=== PATIENT | male | born 1965 | race African-American/Black ===

== ENCOUNTER → 2019-12-23 | Outpatient (CLI) | payer MEDICAID ==
[2019-12-23 18:12] LABS: BASOPHILS % (AUTO) 0.4 %; EOSINOPHILS # (AUTO) 0.2 10^3/uL (0.0-0.7); EOSINOPHILS % (AUTO) 1.5 %; HGB - HEMOGLOBIN 12.5 g/dL (14.0-18.0); LYMPHOCYTES # (AUTO) 1.8 10^3/uL (1.5-3.5); LYMPHOCYTES % (AUTO) 18.7 %; MEAN CORPUSCULAR HEMOGLOBIN 27.7 pg (27.0-31.0); MEAN CORPUSCULAR HGB CONC 31.3 g/dL (32.0-36.0); MEAN CORPUSCULAR VOLUME 88.7 fL (80.0-94.0); MEAN PLATELET VOLUME 9.1 fL (7.4-11.4); MONOCYTES # (AUTO) 0.6 10^3/uL (0.0-1.0); MONOCYTES % (AUTO) 6.3 %; NEUTROPHILS # (AUTO) 7.1 10^3/uL (1.5-6.6); NEUTROPHILS % (AUTO) 72.7 %; PLT - PLATELET COUNT 292 10^3/uL (130-450); RED BLOOD COUNT 4.51 10^6/uL (4.70-6.10); RED CELL DISTRIBUTION WIDTH 15.3 % (12.0-15.0); WHITE BLOOD COUNT 9.7 x10^3/uL (4.8-10.8)
[2019-12-23 18:45] LABS: ALBUMIN 4.1 g/dL (3.2-5.5); ALKALINE PHOSPHATASE 76 IU/L (42-121); ALT ALANINE AMINOTRANSFERASE 12 IU/L (10-60); AST ASPARTATE AMINOTRANSFERASE 19 IU/L (10-42); BILIRUBIN,TOTAL 0.3 mg/dL (0.2-1.0); BUN - BLOOD UREA NITROGEN 12 mg/dL (6-20); CALCIUM 9.1 mg/dL (8.5-10.3); CARBON DIOXIDE - CO2 26 mmol/L (21-32); CHLORIDE 104 mmol/L (101-111); CHOL/HDL RATIO 3.8 (<5.0); CHOLESTEROL 204 mg/dL; CREATININE 0.9 mg/dL (0.6-1.2); GLUCOSE 93 mg/dL (70-100); HDL CHOLESTEROL 53 mg/dL; LDL CHOLESTEROL,CALCULATED 138 mg/dL; LDL/HDL RATIO 2.6 (<3.6); SODIUM 136 mmol/L (135-145); TOTAL PROTEIN 8.2 g/dL (6.7-8.2); VLDL CHOLESTEROL 13 mg/dL
== END ==
LOC: LAB.WCP 13:20
PROVIDERS: ATTEND Physician Assistant
DX: I10 Essential (primary) hypertension (principal); Z79.899 Other long term (current) drug therapy; F10.20 Alcohol dependence, uncomplicated
CPT/HCPCS: 36415; 80053; 80061; 80320; 83721; 85025

== ENCOUNTER 2020-07-25 14:25 | Emergency (ER) | payer MEDICAID ==
--- OUTSIDE RECORDS SUMMARY | 2020-07-25 14:51 | EXTERNAL MEDICAL SUMMARY RPT | Continuity of Care Document ---
:1965 Demographics Phone Unavailable Preferred Language Unknown Marital Status Unknown Yarsani Affiliation Unknown Race Unknown Ethnic Group Unknown Author Organization [facility] Address [address] [place] [address] Phone Allergies Encounters Medications Problems Results
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
[2020-07-25] MEDS ORDERED: ACETAMINOPHEN 325 MG TABLET PO STA (16:25)
[2020-07-25] MEDS ORDERED: IBUPROFEN 600 MG TABLET PO STA (16:25)
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
[2020-07-25 17:08] VITALS: BP 138/88
== END 2020-07-25 17:06 | disposition home or self-care (01) ==
LOC: ED 14:25
DX: S06.0X1A Concussion with loss of consciousness of 30 minutes or less, initial encounter (principal); S16.1XXA Strain of muscle, fascia and tendon at neck level, initial encounter; V89.2XXA Person injured in unspecified motor-vehicle accident, traffic, initial encounter
CPT/HCPCS: 70450; 72125; 99282; 99284; A9270

== ENCOUNTER 2020-11-08 23:17 | Outpatient (CLI) | payer MEDICAID | END 2020-11-08 23:18 | disposition critical access hospital (66) | LOC: EMS 23:17 | DX: R41.82 Altered mental status, unspecified (principal); S09.90XA Unspecified injury of head, initial encounter; R26.9 Unspecified abnormalities of gait and mobility; X58.XXXA Exposure to other specified factors, initial encounter; Y92.414 Local residential or business street as the place of occurrence of the external cause | CPT/HCPCS: A0425; A0427; A0999 ==

== ENCOUNTER 2020-11-08 23:35 | Inpatient (IN) | payer MEDICAID ==
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
[2020-11-09 00:08] LABS: BASOPHILS % (AUTO) 0.2 %; HCT - HEMATOCRIT 38.1 % (42.0-52.0); HGB - HEMOGLOBIN 12.9 g/dL (14.0-18.0); LYMPHOCYTES # (AUTO) 0.5 10^3/uL (1.5-3.5); LYMPHOCYTES % (AUTO) 3.7 %; MEAN CORPUSCULAR HEMOGLOBIN 30.4 pg (27.0-31.0); MEAN CORPUSCULAR HGB CONC 33.9 g/dL (32.0-36.0); MEAN CORPUSCULAR VOLUME 89.6 fL (80.0-94.0); MEAN PLATELET VOLUME 8.7 fL (7.4-11.4); MONOCYTES # (AUTO) 0.5 10^3/uL (0.0-1.0); NEUTROPHILS # (AUTO) 11.8 10^3/uL (1.5-6.6); NEUTROPHILS % (AUTO) 91.7 %; PLT - PLATELET COUNT 136 10^3/uL (130-450); RED BLOOD COUNT 4.25 10^6/uL (4.70-6.10); RED CELL DISTRIBUTION WIDTH 13.7 % (12.0-15.0); WHITE BLOOD COUNT 12.9 x10^3/uL (4.8-10.8)
[2020-11-09 00:14] LABS: INR 1.1 (0.8-1.2); PT - PROTHROMBIN TIME 11.9 secs (9.9-12.6)
[2020-11-09 00:21] LABS: ALBUMIN 4.4 g/dL (3.2-5.5); ALKALINE PHOSPHATASE 80 IU/L (42-121); ALT ALANINE AMINOTRANSFERASE 40 IU/L (10-60); AST ASPARTATE AMINOTRANSFERASE 65 IU/L (10-42); BILIRUBIN,TOTAL 1.2 mg/dL (0.2-1.0); BUN - BLOOD UREA NITROGEN 17 mg/dL (6-20); CALCIUM 9.9 mg/dL (8.5-10.3); CARBON DIOXIDE - CO2 22 mmol/L (21-32); CHLORIDE 95 mmol/L (101-111); CREATININE 1.4 mg/dL (0.6-1.2); ETOH - ETHANOL < 5.0 mg/dL; GFR - MDRD 64 (>89); GLUCOSE 149 mg/dL (70-100); LIPASE 33 U/L (22-51); POTASSIUM 3.5 mmol/L (3.5-5.0); SODIUM 134 mmol/L (135-145); TOTAL PROTEIN 8.9 g/dL (6.7-8.2)
[2020-11-09 00:23] LABS: PARTIAL THROMBOPLASTIN TIME 25.2 secs (24.9-33.3)
--- NOTE | 2020-11-09 00:34 | CT Report ---
PROCEDURE: HEAD WO INDICATIONS: AMS TECHNIQUE: Noncontrast 4.5 mm thick angled axial sections acquired from the foramen magnum to the vertex. For r adiation dose reduction, the following was used: automated exposure control, adjustment of mA and/or kV according to patient size. COMPARISON: 07/25/2020. FINDINGS: Image quality: Excellent. CSF spaces: Basal cisterns are patent. No extra-axial fluid collections. Ventricles are normal in size and shape. Brain: Endovascular coil is again noted in the left [place] of [place] causing significant beam hardeni ng artifact. No midline shift. No intracranial masses or hemorrhage. Smith-white matter interface is normal. Skull and face: Calvarium and visualized facial bones are intact, without suspicious lesions. Sinuses: Visualized sinuses and mastoids are clear. IMPRESSION: 1. No CT evidence of acute intracranial pathology. No significant changes from previous study. 2. Surgical coil is again seen in left in[place] of [place] causing significant beam hardening artifacts unchanged from prior study. Reviewed by: Kosta Jasmine MD on 11/09/2020 12:32 AM PDT Approved by: Kosta Jasmine MD on 11/09/2020 12:32 AM PDT Station ID: [id number]
--- NOTE | 2020-11-09 00:35 | CT Report ---
PROCEDURE: CERVICAL SPINE WO INDICATIONS: AMS, syncope, head injury, confused TECHNIQUE: Noncontrast 3 mm thick sections acquired from the skull base to the T4 level. Sagittal and coronal r eformats were then constructed. For radiation dose reduction, the following was used: automated exp osure control, adjustment of mA and/or kV according to patient size. COMPARISON: 07/25/2020. FINDINGS: Image quality: Excellent. Bones: No fractures or dislocations. Mild degenerative endplate changes are noted at C3-4, C4-5 and C5-6 levels not significantly changed from prior study. Visualized superior ribs are intact. Soft tissues: Prevertebral soft tissues are normal in thickness. No paravertebral hematomas. No ap ical pneumothoraces. IMPRESSION: 1. No acute cervical spine fracture or dislocation. 2. Mild degenerative disc disease in cervical spine unchanged from previous study. Reviewed by: Kosta Jasmine MD on 11/09/2020 12:34 AM PDT Approved by: Kosta Jasmine MD on 11/09/2020 12:34 AM PDT Station ID: [id number]
--- NOTE | 2020-11-09 00:36 | XRAY Report ---
PROCEDURE: Chest 1 View X-Ray INDICATIONS: AMS, syncope TECHNIQUE: One view of the chest was acquired. COMPARISON: None. FINDINGS: Surgical changes and devices: None. Lungs and pleura: No pleural effusions or pneumothorax. Lungs are clear. Mediastinum: Mediastinal contours appear normal. Heart size is normal. Bones and chest wall: No suspicious bony lesions. Overlying soft tissues appear unremarkable. IMPRESSION: No acute cardiopulmonary pathology. Reviewed by: Kosta Jasmine MD on 11/09/2020 12:34 AM PDT Approved by: Kosta Jasmine MD on 11/09/2020 12:34 AM PDT Station ID: [id number]
[2020-11-09 00:42] LABS: MUDS CUTOFF CONCENTRATIONS CUTOFF CONC BELOW:
[2020-11-09 00:43] LABS: BILIRUBIN,URINE NEGATIVE (NEGATIVE); GLUCOSE, URINE (UA) NEGATIVE (NEGATIVE); KETONES,URINE (UA) NEGATIVE (NEGATIVE); LEUKOCYTE ESTERASE, URINE NEGATIVE (NEGATIVE); NITRITE,URINE NEGATIVE (NEGATIVE); OCCULT BLOOD,URINE MODERATE (NEGATIVE); PROTEIN,URINE 100 mg/dL (NEGATIVE); UROBILINOGEN,URINE 1 (NORMAL) E.U./dL (NORMAL)
[2020-11-09 00:54] LABS: CLARITY,URINE CLEAR (CLEAR); WBC,URINE 0-3 /HPF (0-3)
[2020-11-09 00:55] LABS: AMPHETAMINE SCREEN,URINE NEGATIVE (NEGATIVE); BACTERIA,URINE Rare /HPF (None Seen); BARBITURATE SCREEN,UR NEGATIVE (NEGATIVE); BENZODIAZEPINES SCREEN, URINE NEGATIVE (NEGATIVE); CASTS, URINE 3-5 Hyaline Casts /LPF; COCAINE SCREEN URINE NEGATIVE (NEGATIVE); METHADONE SCREEN, URINE NEGATIVE (NEGATIVE); METHAMPHETAMINES SCREEN, URINE NEGATIVE (NEGATIVE); MUCUS,URINE Few Strands; OPIATE SCREEN, URINE NEGATIVE (NEGATIVE); OXYCODONE SCREEN, URINE NEGATIVE (NEGATIVE); PROPOXYPHENE SCREEN, URINE NEGATIVE (NEGATIVE); SQUAMOUS EPITHELIAL CELL,UR FEW Squamous (<= Few); THC CANNABINOID SCREEN, URINE NEGATIVE (NEGATIVE); TRICYCLIC ANTIDEPRESSANT,URINE NEGATIVE (NEGATIVE)
[2020-11-09 01:37] LABS: B. PARAPERTUSSIS- RESP PCR PAN NOT DETECTED; B. PERTUSSIS- RESP PCR PANEL NOT DETECTED; C. PNEUMONIAE- RESP PCR PANEL NOT DETECTED; CORONAVIRUS 229E-RESP PCR NOT DETECTED; CORONAVIRUS HKU1-RESP PCR NOT DETECTED; CORONAVIRUS NL63-RESP PCR NOT DETECTED; CORONAVIRUS OC43-RESP PCR NOT DETECTED; HUMAN METAPNEUMOVIRUS NOT DETECTED; INFLUENZA A- RESP PCR PANEL NOT DETECTED; INFLUENZA B - RESP PCR PANEL NOT DETECTED; M. PNEUMONIAE- RESP PCR PANEL NOT DETECTED; PARAINFLUENZA VIRUS 1 NOT DETECTED; PARAINFLUENZA VIRUS 2 NOT DETECTED; PARAINFLUENZA VIRUS 3 NOT DETECTED; PARAINFLUENZA VIRUS 4 NOT DETECTED; RHINOVIRUS/ENTEROVIRUS NOT DETECTED; RSV- RESP PCR PANEL NOT DETECTED; SARS-CoV-2 -RESP PCR PANEL NOT DETECTED
[2020-11-09] MEDS ORDERED: LORazepam 2 MG/ML VIAL IVP STA (02:14)
[2020-11-09] MEDS ORDERED: levETIRAcetam INJ 1,000 MG in SODIUM CHLORIDE 0.9% 100ML 100 ML IV STA (02:54)
[2020-11-09] MEDS ORDERED: KETOROLAC 30 MG/ML VIAL IVP STA (07:24)
[2020-11-09] MEDS ORDERED: SODIUM CHLORIDE 0.9% 1,000 ML IV STA (09:04)
[2020-11-09] MEDS ORDERED: FOLIC ACID INJ 1 MG, THIAMINE INJ 100 MG, MAGNESIUM SULFATE 2 GM, MULTIVITAMIN 10 ML in... IV STA ×5 (16:37)
[2020-11-09] MEDS ORDERED: THIAMINE INJ 500 MG in SODIUM CHLORIDE 0.9% 50 ML IV STA (16:39)
[2020-11-09 16:55] LABS: BASOPHILS % (AUTO) 0.4 %; EOSINOPHILS # (AUTO) 0.1 10^3/uL (0.0-0.7); EOSINOPHILS % (AUTO) 0.4 %; LYMPHOCYTES # (AUTO) 1.8 10^3/uL (1.5-3.5); LYMPHOCYTES % (AUTO) 15.5 %; MEAN CORPUSCULAR HGB CONC 33.3 g/dL (32.0-36.0); MEAN PLATELET VOLUME 9.1 fL (7.4-11.4); MONOCYTES # (AUTO) 0.8 10^3/uL (0.0-1.0); MONOCYTES % (AUTO) 7.1 %; NEUTROPHILS # (AUTO) 8.6 10^3/uL (1.5-6.6); NEUTROPHILS % (AUTO) 76.2 %; PLT - PLATELET COUNT 115 10^3/uL (130-450); RED CELL DISTRIBUTION WIDTH 13.8 % (12.0-15.0); WHITE BLOOD COUNT 11.3 x10^3/uL (4.8-10.8)
[2020-11-09 17:06] LABS: ALBUMIN 3.8 g/dL (3.2-5.5); ALBUMIN/GLOBULIN RATIO 0.9 (1.0-2.2); BILIRUBIN,TOTAL 1.3 mg/dL (0.2-1.0); CREATININE 1.1 mg/dL (0.6-1.2); MAGNESIUM 2.1 mg/dL (1.7-2.8); PHOSPHORUS 3.6 mg/dL (2.5-4.6); POTASSIUM 3.1 mmol/L (3.5-5.0)
--- NOTE | 2020-11-09 17:20 | ED Physician Documentation ---
ED Addendum - Addendum Addendum: 11/09/20 17:18 Patient is a 55-year-old male who upon further review of his clinic medical records, has been through our outpatient clinic once last year. Apparently has a longstanding history of alcoholism and would often hide alcohol from his family including bottles under his bed. Patient also had a aneurysm coiled in 2019 at a hospital [facility]. He is unsure which one. I reevaluated the patient in the emergency department and he does seem to be clearing in his m ental status slightly. He states his last drink was on Monday, the seizure was on Monday, likely alcohol withdrawal seizure. He does appear to be encephalopathic with ataxia. Do not see nystagmus or oculomotor palsies at this point. Concern for possible Warnicke's encephalopathy. Started on IV thiamine and a banana bag. He also has a mildly elevated troponin as well. Discussed the case with Dr. Gan, hospitalist who will admit the patient for continued IV thiamine, echocardiogram in the morning and further care. This document was made in part using voice recognition software. While efforts are made to proofread this document, sound alike and grammatical errors may occur. Departure - Departure Disposition: 66 [facility] DC/Xfer Clinical Impression: Wernicke encephalopathy, Elevated troponin level Alcohol withdrawal Qualifiers: Complication of substance-induced condition: uncomplicated Qualified Code(s): F10.230 - Alcohol dependence with withdrawal, uncomplicated Condition: Stable
[2020-11-09] MEDS ORDERED: ONDANSETRON 4 MG/2 ML VIAL IVP PRN (20:04)
[2020-11-09] MEDS ORDERED: MORPHINE 2 MG/ML CARPUJECT IVP PRN (20:04)
[2020-11-09] MEDS ORDERED: SODIUM CHLORIDE FLUSH 0.9% 10 ML SYRINGE IVP PRN (20:04)
[2020-11-09 20:33] LABS: BASOPHILS % (AUTO) 0.3 %; EOSINOPHILS # (AUTO) 0.1 10^3/uL (0.0-0.7); EOSINOPHILS % (AUTO) 0.8 %; HCT - HEMATOCRIT 34.5 % (42.0-52.0); HGB - HEMOGLOBIN 11.4 g/dL (14.0-18.0); LYMPHOCYTES # (AUTO) 1.6 10^3/uL (1.5-3.5); LYMPHOCYTES % (AUTO) 14.8 %; MEAN CORPUSCULAR HEMOGLOBIN 29.9 pg (27.0-31.0); MEAN CORPUSCULAR VOLUME 90.6 fL (80.0-94.0); MEAN PLATELET VOLUME 8.8 fL (7.4-11.4); MONOCYTES # (AUTO) 0.7 10^3/uL (0.0-1.0); MONOCYTES % (AUTO) 6.3 %; NEUTROPHILS # (AUTO) 8.4 10^3/uL (1.5-6.6); NEUTROPHILS % (AUTO) 77.3 %; PLT - PLATELET COUNT 108 10^3/uL (130-450); RED BLOOD COUNT 3.81 10^6/uL (4.70-6.10); RED CELL DISTRIBUTION WIDTH 13.7 % (12.0-15.0); WHITE BLOOD COUNT 10.9 x10^3/uL (4.8-10.8)
[2020-11-09 20:34] LABS: INR 1.1 (0.8-1.2); PT - PROTHROMBIN TIME 11.8 secs (9.9-12.6)
[2020-11-09 20:42] LABS: ALBUMIN 3.7 g/dL (3.2-5.5); BILIRUBIN,TOTAL 1.1 mg/dL (0.2-1.0); CALCIUM 8.8 mg/dL (8.5-10.3); CREATININE 1.1 mg/dL (0.6-1.2); TOTAL PROTEIN 7.3 g/dL (6.7-8.2)
[2020-11-09] MEDS ORDERED: HEPARIN 25000UNITS/500ML (D5W) 25,000 UNIT/500 ML BAG IV SCH (21:00)
[2020-11-09] MEDS ORDERED: HEPARIN 5,000 UNIT/ML VIAL IVP ONE (21:00)
[2020-11-09] MEDS: METOPROLOL TARTRATE 25 MG TABLET PO SCH (21:05)
[2020-11-09] MEDS: ATORVASTATIN 10 MG TABLET PO SCH (21:41)
[2020-11-09] MEDS: chlordiazePOXIDE 25 MG CAPSULE PO SCH (22:23)
[2020-11-09] MEDS: CHLORHEXIDINE GLUCONATE 15 ML UDC PO SCH (22:26)
--- NOTE | 2020-11-09 22:45 | HISTORY & PHYSICAL EXAMINATION ---
History and Physical - History and Physical Chief complaint: Altered mental status/seizure Source of history: Signout from daytime hospitalist, ER signout, patient, medical record review History of present illness: The patient is a 55-year-old alcoholic male who receives no outpatient medical care. He reports history of blacking out and having probable seizure activity in the past, but does not specify his alcohol use or related history. He has history of high blood pressure which is untreated. He presented to the ER overnight on November 08 with altered mental status, and was found with repeat seizure activity during the ER stay. Initially patient was somnolent and not much information could be obtained. Case was discussed with neurology, for details I refer to the ER notes. During the daytime clinic records were obtained and based on that, the patient is a chronic alcoholic, therefore it was felt that the seizure was secondary to alcohol withdrawal. Patient reports his last drink was on Monday night, about 48 hours prior to presentation. Ad ditional problem during the ER stay included abnormal EKG with inverted T waves and elevated troponin with upgoing trend, for which cardiology consult was requested. Patient overall did not complain of shortness of breath or chest pain and clinically/mental status lyon he was steadily improving during the ER stay. Cardiology felt that cardiac abnormality was probable demand ischemia rather than coronary blockage and no invasive evaluation or transfer was recommended. Therefore the daytime hospitalist accepted the patient to be admitted to our hospital. Subsequently, I evaluated the patient at the ER, he was with much improved mentation compared to previous, he was easily arousable and converses appropriately. He offered no complaint. He confirmed his alcohol use history. He reported having history of blackouts in the past related to alcohol use and when he would stop drinking. He did not report history of coronary artery disease. Denied chest pain or shortness of breath. Regarding vital signs, patient was tachycardic and hypertensive. On exam he was noted with a bitten tongue however he did not complain of tongue pain, bleeding, and he did not recall tongue biting or urinary incontinence. At the ER he received IV hydration, vitamin replacement, Ativan and Keppra load. Regarding ER work-up, pertinent results are listed below. Past medical history: Hypertension/Not on any outpatient medication Aneurysm coiling in 2019/no record available Chronic alcoholism History of seizure/likely withdrawal seizure Outpatient medications: None taken Allergies: No known drug allergies Family history:Patient reports multiple first-degree family members have history of alcoholism and diabetes. No family history of coronary artery disease or seizure. Social history and functional status: The patient works at [employer]. He states he does not drink when he works however after work he usually drinks every day. He has been drinking alcohol "for a long time". He does not quantify or further describe his drinking habits, he states when he drinks he "drinks a lot". He had episodes in the past when he stopped drinking for a while and passed out/had probable seizure. He smokes cigarettes. Denies drug use. He does not have a primary care physician, goes to a walk-in clinic when has medical needs. CODE STATUS: Full code Review of symptoms: 12 point review done, pertinent positives and negatives listed above at history present illness, there was no additional positive. Physical exam: Vital Signs - 24 hr 11/08/20 11/08/20 11/09/20 23:43 23:48 00:18 Temperature 37.2 C 37.2 C Heart Rate 124 H 124 H 118 H Heart Rate [ Monitoring electrodes] Respiratory 24 24 19 Rate Blood Pressure 175/111 H 175/111 H 180/112 H Blood Pressure [Right Brachial artery] O2 Saturation 99 99 97 11/09/20 11/09/20 11/09/20 08:36 09:00 10:51 Temperature Heart Rate 122 H 108 H 93 Heart Rate [ Monitoring electrodes] Respiratory 23 15 16 Rate Blood Pressure 157/93 H 156/94 H 148/87 H Blood Pressure [Right Brachial artery] O2 Saturation 100 99 11/09/20 11/09/20 22:00 22:37 Temperature 36.8 C Heart Rate Heart Rate [ 67 Monitoring electrodes] Respiratory 15 Rate Blood Pressure Blood Pressure 161/90 H [Right Brachial artery] O2 Saturation 100 Oxygen O2 Source Room air General: The patient is a well-developed black male; sleeping when I enter his room in the ER however he arouses on verbal stimuli and converses appropriately. Not in distress. HEENT: Bitten tongue, right side with some hematoma/abrasion. Injected sclerae. Respiratory: No increased work of breathing, clear to auscultation bilaterally without wheezes or crackles. CVS: S1, S2, Regular tachycardia, no murmur rub or gallop. Abdomen: Benign abdomen, bowel tones present, nontender, nondistended. Neurologic: Initial lethargic but easily arousable and answers questions appropriately, oriented; no focal lateralizing sign. Psych: Cooperative.No agitation. Lymph: No pitting pedal edema. Skin: Patient has dark skin, there was no notable pallor or rash. There was an abrasion and the wound with a superficial hematoma on the right side of the forehead. Musculoskeltal: Right forehead abrasion and hematoma. Bitten tongue. No other notable injury. Diagnostic work-up: Laboratory Results - last 24 hr 11/09/20 11/09/20 11/09/20 00:00 00:00 00:00 WBC 12.9 H RBC 4.25 L Hgb 12.9 L Hct 38.1 L MCV 89.6 MCH 30.4 MCHC 33.9 RDW 13.7 Plt Count 136 MPV 8.7 Neut # (Auto) 11.8 H Lymph # (Auto) 0.5 L Brooks # (Auto) 0.5 Eos # (Auto) 0.0 Baso # (Auto) 0.0 Absolute Nucleated RBC 0.00 Nucleated RBC % 0.0 PT 11.9 INR 1.1 APTT 25.2 Sodium 134 L Potassium 3.5 Chloride 95 L Carbon Dioxide 22 Anion Gap 17.0 H BUN 17 Creatinine 1.4 H Estimated GFR (MDRD) 64 L Glucose 149 H Calcium 9.9 Phosphorus Magnesium Total Bilirubin 1.2 H AST 65 H ALT 40 Alkaline Phosphatase 80 Total Creatine Kinase CK-MB (CK-2) Troponin I High Sens Total Protein 8.9 H Albumin 4.4 Globulin 4.5 H Albumin/Globulin Ratio 1.0 Lipase 33 TSH Urine Color Urine Clarity Urine pH Ur Specific [place] Urine Protein Urine Glucose (UA) Urine Ketones Urine Occult Blood Urine Nitrite Urine Bilirubin Urine Urobilinogen Ur Leukocyte Esterase Urine RBC Urine WBC Ur Squamous Epith Cells Urine Bacteria Urine Casts Urine Mucus Ur Microscopic Review Urine Culture Comments Nasal Adenovirus (PCR) Nasal B. parapertussis DNA (PCR) Nasal Coronavir 229E PCR Nasal Coronavir HKU1 PCR Nasal Coronavir NL63 PCR Nasal Coronavir OC43 PCR Nasal Enterovir/Rhinovir PCR Nasal Influenza B PCR Nasal Influenza A PCR Nasal Parainfluen 1 PCR Nasal Parainfluen 2 PCR Nasal Parainfluen 3 PCR Nasal Parainfluen 4 PCR Nasal RSV (PCR) Nasal B.pertussis DNA PCR Nasal C.pneumoniae (PCR) Gabe Human Metapneumo PCR Nasal M.pneumoniae (PCR) Nasal SARS-CoV-2 (PCR) Urine Opiates Screen Ur Oxycodone Screen Urine Methadone Screen Ur Propoxyphene Screen Ur Barbiturates Screen Ur Tricyclics Screen Ur Phencyclidine Scrn Ur Amphetamine Screen U Methamphetamines Scrn U Benzodiazepines Scrn Urine Cocaine Screen U Cannabinoids Screen Ethyl Alcohol < 5.0 11/09/20 11/09/20 11/09/20 00:00 00:00 00:00 WBC RBC Hgb Hct MCV MCH MCHC RDW Plt Count MPV Neut # (Auto) Lymph # (Auto) Brooks # (Auto) Eos # (Auto) Baso # (Auto) Absolute Nucleated RBC Nucleated RBC % PT INR APTT Sodium Potassium Chloride Carbon Dioxide Anion Gap BUN Creatinine Estimated GFR (MDRD) Glucose Calcium Phosphorus Magnesium Total Bilirubin AST ALT Alkaline Phosphatase Total Creatine Kinase CK-MB (CK-2) Troponin I High Sens 72.8 H* Total Protein Albumin Globulin Albumin/Globulin Ratio Lipase TSH 0.96 Urine Color YELLOW Urine Clarity CLEAR Urine pH 6.0 Ur Specific [place] 1.020 Urine Protein 100 H Urine Glucose (UA) NEGATIVE Urine Ketones NEGATIVE Urine Occult Blood MODERATE H Urine Nitrite NEGATIVE Urine Bilirubin NEGATIVE Urine Urobilinogen 1 (NORMAL) Ur Leukocyte Esterase NEGATIVE Urine RBC 6-10 H Urine WBC 0-3 Ur Squamous Epith Cells FEW Squamous Urine Bacteria Rare Urine Casts 3-5 Hyaline Casts Urine Mucus Few Strands Ur Microscopic Review INDICATED Urine Culture Comments NOT INDICATED Nasal Adenovirus (PCR) Nasal B. parapertussis DNA (PCR) Nasal Coronavir 229E PCR Nasal Coronavir HKU1 PCR Nasal Coronavir NL63 PCR Nasal Coronavir OC43 PCR Nasal Enterovir/Rhinovir PCR Nasal Influenza B PCR Nasal Influenza A PCR Nasal Parainfluen 1 PCR Nasal Parainfluen 2 PCR Nasal Parainfluen 3 PCR Nasal Parainfluen 4 PCR Nasal RSV (PCR) Nasal B.pertussis DNA PCR Nasal C.pneumoniae (PCR) Gabe Human Metapneumo PCR Nasal M.pneumoniae (PCR) Nasal SARS-CoV-2 (PCR) Urine Opiates Screen NEGATIVE Ur Oxycodone Screen NEGATIVE Urine Methadone Screen NEGATIVE Ur Propoxyphene Screen NEGATIVE Ur Barbiturates Screen NEGATIVE Ur Tricyclics Screen NEGATIVE Ur Phencyclidine Scrn NEGATIVE Ur Amphetamine Screen NEGATIVE U Methamphetamines Scrn NEGATIVE U Benzodiazepines Scrn NEGATIVE Urine Cocaine Screen NEGATIVE U Cannabinoids Screen NEGATIVE Ethyl Alcohol 11/09/20 11/09/20 11/09/20 00:10 02:12 11:11 WBC RBC Hgb Hct MCV MCH MCHC RDW Plt Count MPV Neut # (Auto) Lymph # (Auto) Brooks # (Auto) Eos # (Auto) Baso # (Auto) Absolute Nucleated RBC Nucleated RBC % PT INR APTT Sodium Potassium Chloride Carbon Dioxide Anion Gap BUN Creatinine Estimated GFR (MDRD) Glucose Calcium Phosphorus Magnesium Total Bilirubin AST ALT Alkaline Phosphatase Total Creatine Kinase CK-MB (CK-2) Troponin I High Sens 131.8 H* 250.9 H* Total Protein Albumin Globulin Albumin/Globulin Ratio Lipase TSH Urine Color Urine Clarity Urine pH Ur Specific [place] Urine Protein Urine Glucose (UA) Urine Ketones Urine Occult Blood Urine Nitrite Urine Bilirubin Urine Urobilinogen Ur Leukocyte Esterase Urine RBC Urine WBC Ur Squamous Epith Cells Urine Bacteria Urine Casts Urine Mucus Ur Microscopic Review Urine Culture Comments Nasal Adenovirus (PCR) NOT DETECTED Nasal B. parapertussis DNA (PCR) NOT DETECTED Nasal Coronavir 229E PCR NOT DETECTED Nasal Coronavir HKU1 PCR NOT DETECTED Nasal Coronavir NL63 PCR NOT DETECTED Nasal Coronavir OC43 PCR NOT DETECTED Nasal Enterovir/Rhinovir PCR NOT DETECTED Nasal Influenza B PCR NOT DETECTED Nasal Influenza A PCR NOT DETECTED Nasal Parainfluen 1 PCR NOT DETECTED Nasal Parainfluen 2 PCR NOT DETECTED Nasal Parainfluen 3 PCR NOT DETECTED Nasal Parainfluen 4 PCR NOT DETECTED Nasal RSV (PCR) NOT DETECTED Nasal B.pertussis DNA PCR NOT DETECTED Nasal C.pneumoniae (PCR) NOT DETECTED Gabe Human Metapneumo PCR NOT DETECTED Nasal M.pneumoniae (PCR) NOT DETECTED Nasal SARS-CoV-2 (PCR) NOT DETECTED Urine Opiates Screen Ur Oxycodone Screen Urine Methadone Screen Ur Propoxyphene Screen Ur Barbiturates Screen Ur Tricyclics Screen Ur Phencyclidine Scrn Ur Amphetamine Screen U Methamphetamines Scrn U Benzodiazepines Scrn Urine Cocaine Screen U Cannabinoids Screen Ethyl Alcohol EKG: Abnormal EKG with rate of 130, sinus rhythm; anterolateral changes including inverted T waves and an abnormally sloping ST segment however no ST elevation qualifying for STEMI. Imaging reviewed per electronic medical record CT head showed no acute int racranial abnormality. CT scan of the cervical spine showed degenerative disease but no acute abnormality. Chest x-ray showed no acute cardiopulmonary disease. Assessment and plan: Active issues/diagnoses Encephalopathy/alcohol withdrawal seizure with tongue biting Chronic alcoholism Acute coronary syndrome with upgoing troponin/per cardiology opinion no invasive evaluation or transfer to higher level of care indicated/Probable demand ischemia Closed head injury secondary to fall in the setting of seizure Acute kidney injury/dehydration History of hypertension/untreated Cigarette smoking Noncompliance/no primary care Hyperdynamic circulation with tachycardia and hypertension /multifactorial secondary to untreated hypertension, alcohol withdrawal, dehydration, demand ischemia Plan and orders: Admitted as inpatient to the ICU Started on Librium plus CIWA scoring and as needed Ativan coverage. Aspiration precautions/seizure precaution. Thiamine, folate, vitamin supplementation/IV hydration/banana bag. Discussed current work-up, diagnoses, prognosis with the patient and the need for abstinence, outpatient follow-up and lifestyle modification. ER physician discussed the case with neurology and no antiepileptic was recommended, initially Keppra was ordered however in light of alcohol withdrawal seizure the neurologist did not recommend further use of antiepileptic. Outpatient EEG was recommended but no transfer to higher level of care. For details I refer to the ER physician's note. Regarding acute coronary syndrome the initial EKG was significantly abnormal however cardiology felt that it was secondary to seizure/alcohol withdrawal. No transfer to higher level of care was recommended; cardiology recommendations and input are well documented in the ER physician's note. Patient will be closely monitored on telemetry, troponin will be rechecked in the morning. For now we will order repeat EKG, if ST elevation develops then overnight transfer will be rediscussed with cardiology. Cardiac ischemia will be treated conservatively with heparin drip, beta-gilbert, aspirin, statin. Echocardiogram in the morning. Further plan will depend on the clinical course. Nicotine patch. Oral care. Chlorhexidine. Abstinence from alcohol recommended, social work consult. Attestation: I certify that the patient meets inpatient criteria based on the admission diagnosis, and the above assessment, findings and plan; he is expected to be hospitalized for more than 48 hours however to discharge or transfer to other facility within less than 96 hours. Time: 65 minutes critical care time spent
[2020-11-09] MEDS: SODIUM CHLORIDE FLUSH 0.9% 10 ML SYRINGE IVP SCH (22:47)
[2020-11-10 01:31] LABS: BILIRUBIN,URINE NEGATIVE (NEGATIVE); GLUCOSE, URINE (UA) NEGATIVE (NEGATIVE); KETONES,URINE (UA) TRACE mg/dL (NEGATIVE); LEUKOCYTE ESTERASE, URINE NEGATIVE (NEGATIVE); NITRITE,URINE NEGATIVE (NEGATIVE); OCCULT BLOOD,URINE MODERATE (NEGATIVE); PROTEIN,URINE NEGATIVE (NEGATIVE); UROBILINOGEN,URINE 0.2 (NORMAL) E.U./dL (NORMAL)
[2020-11-10 01:36] LABS: CLARITY,URINE CLEAR (CLEAR)
[2020-11-10 01:41] LABS: RBC,URINE 0-5 /HPF (0-5); WBC,URINE 0-3 /HPF (0-3)
[2020-11-10 01:42] LABS: BACTERIA,URINE None Seen /HPF (None Seen); SQUAMOUS EPITHELIAL CELL,UR RARE Squamous (<= Few)
[2020-11-10 05:36] LABS: MAGNESIUM 2.1 mg/dL (1.7-2.8); PHOSPHORUS 3.7 mg/dL (2.5-4.6)
[2020-11-10] MEDS: chlordiazePOXIDE 25 MG CAPSULE PO SCH ×3 (06:22→21:52)
[2020-11-10] MEDS: PANTOPRAZOLE 40 MG TABLET PO SCH (06:22)
--- NOTE | 2020-11-10 08:25 | PROVIDER PROGRESS NOTE ---
Subjective - Prog Note Date Prog Note Date: 11/10/20 Prog Note Time: 13:56 - Subjective Pt reports feeling: Improved Subjective: awake alert and he feels "ashamed" about his drinking. States he started 6 years ago due to job and loses. Denies pain. Feels mild restlessness and anxiety but no diaphoresis or tremors. No more seizures since yesterday. Current Medications - Current Medications Current Medications: Active Medications Acetaminophen (Acetaminophen 325 Mg Tablet) 650 mg PO Q4HR PRN PRN Reason: Pain 1 to 4 Aspirin (Aspirin Ec 325 Mg Tablet) 325 mg PO DAILY [facility] Atorvastatin Calcium (Atorvastatin 10 Mg Tablet) 10 mg PO QPM [facility] Last Admin: 11/09/20 21:41 Dose: 10 mg Documented by: Chlordiazepoxide HCl (Chlordiazepoxide 25 Mg Capsule) 50 mg PO TID [facility] Last Admin: 11/10/20 06:22 Dose: 50 mg Documented by: Chlorhexidine Gluconate (Chlorhexidine Gluconate 15 Ml Udc) 15 ml PO BID [facility] Last Admin: 11/09/20 22:26 Dose: 15 ml Documented by: Enoxaparin Sodium (Enoxaparin 40 Mg/0.4 Ml Syringe) 40 mg SUBQ DAILY [facility] Multivitamins 10 ml/ Folic Acid 1 mg/ Thiamine HCl 100 mg / Magnesium Sulfate 2 gm/Sodium Chloride 1,015.2 mls @ 100 mls/hr IV DAILY [facility] Lorazepam (Lorazepam 2 Mg/Ml Vial) 2 mg IVP Q30M PRN; Protocol PRN Reason: CIWA >8 Metoprolol Tartrate (Metoprolol Tartrate 25 Mg Tablet) 25 mg PO BID [facility] Last Admin: 11/09/20 21:05 Dose: 25 mg Documented by: Morphine Sulfate (Morphine 2 Mg/Ml Carpuject) 2 mg IVP Q2HR PRN PRN Reason: Pain 8 to 10 Nicotine (Nicotine 14 Mg Patch) 1 patch TOP DAILY [facility] Ondansetron HCl (Ondansetron 4 Mg/2 Ml Vial) 4 mg IVP Q6HR PRN PRN Reason: Nausea / Vomiting Pantoprazole Sodium (Pantoprazole 40 Mg Tablet) 40 mg PO QDAC [facility] Last Admin: 11/10/20 06:22 Dose: 40 mg Documented by: Multivit/Folic Acid/Iron ( Vitamin Tablet) 1 tab PO DAILY [facility] Sodium Chloride (Sodium Chloride Flush 0.9% 10 Ml Syringe) 10 ml IVP PRN PRN PRN Reason: NEEDED PER PROVIDER ORDERS Sodium Chloride (Sodium Chloride Flush 0.9% 10 Ml Syringe) 10 ml IVP 0100,0900,1700 [facility] Last Admin: 11/09/20 22:47 Dose: 10 ml Documented by: Thiamine HCl (Thiamine 100 Mg Tablet) 100 mg PO DAILY CON Home Medications Unobtainable [HOME MEDICATIONS UNOBTAINABLE] 11/09/20 Objective - Vital Signs/Intake & Output Reviewed Vital Signs: Yes Vital Signs: Vital Signs x48h Temp Pulse Pulse Resp BP BP Pulse Ox 11/10/20 07:00 68 14 150/88 H 99 11/10/20 06:00 36.8 C 65 12 161/116 H 100 11/10/20 05:10 61 13 11/10/20 05:05 85 20 11/10/20 05:01 65 14 135/80 H 11/10/20 05:00 64 65 13 135/80 H 100 11/10/20 04:55 68 14 11/10/20 04:50 68 15 11/10/20 04:45 67 21 11/10/20 04:40 66 15 11/10/20 04:35 70 14 11/10/20 04:30 72 13 11/10/20 04:25 72 12 11/10/20 04:20 73 13 11/10/20 04:15 73 12 11/10/20 04:10 74 14 11/10/20 04:05 70 12 11/10/20 04:01 68 15 148/94 H 11/10/20 04:00 67 68 15 148/94 H 99 11/10/20 03:55 67 13 11/10/20 03:50 73 18 11/10/20 03:45 74 15 11/10/20 03:40 70 13 11/10/20 03:35 76 14 11/10/20 03:30 85 14 11/10/20 03:29 78 12 150/93 H 11/10/20 03:28 82 15 11/10/20 03:25 73 16 11/10/20 03:20 77 14 11/10/20 03:15 73 15 11/10/20 03:10 76 26 H 11/10/20 03:05 72 12 11/10/20 03:00 72 72 13 150/93 H 100 11/10/20 02:55 67 18 11/10/20 02:50 71 13 11/10/20 02:45 72 21 11/10/20 02:40 83 17 11/10/20 02:35 71 16 11/10/20 02:30 76 22 11/10/20 02:25 70 15 11/10/20 02:20 74 18 11/10/20 02:15 80 22 11/10/20 02:10 64 15 11/10/20 02:06 73 19 11/10/20 02:05 67 14 147/90 H 11/10/20 02:04 70 15 11/10/20 02:01 74 16 153/109 H 11/10/20 02:00 73 68 15 147/90 H 100 11/10/20 01:55 85 26 H 11/10/20 01:50 67 12 11/10/20 01:45 73 16 11/10/20 01:40 68 16 11/10/20 01:05 69 17 147/85 H 100 11/10/20 01:00 76 25 H 11/10/20 00:55 67 22 11/10/20 00:50 87 21 11/10/20 00:45 73 12 11/10/20 00:40 70 14 11/10/20 00:35 66 19 11/10/20 00:30 67 12 11/10/20 00:25 68 14 Intake & Output: Intake & Output 11/07/20 11/08/20 11/09/20 11/10/20 23:59 23:59 23:59 23:59 Intake Total 2420.2 439.674 Output Total 400 Balance 2420.2 39.674 - Objective General Appearance: positive: No acute distress, Alert, Other (oriented, calm black male) Eyes Bilateral: positive: PERRL ENT: positive: No signs of dehydration Neck: positive: No JVD. negative: Stiff neck Respiratory: positive: No respiratory distress. negative: Wheezes, Rales, Rhonchi Cardiovascular: positive: Regular rate & rhythm. negative: Gallop/S4, Friction rub Abdomen: positive: Non-tender, No organomegaly, Nml bowel sounds, No distention Skin: positive: Warm, Dry Extremities: positive: Full ROM, No pedal edema Neurologic/Psychiatric: positive: Oriented x3, CN's nml (2-12), Motor nml, Sens ation nml - Lab Results Fish Bones: 11/09/20 20:19 11/09/20 20:19 Other Labs: Lab Results x24hrs 11/10/20 11/10/20 11/10/20 Range/Units 05:05 05:05 05:05 WBC (4.8-10.8) x10^3/uL RBC (4.70-6.10) 10^6/uL Hgb (14.0-18.0) g/dL Hct (42.0-52.0) % MCV (80.0-94.0) fL MCH (27.0-31.0) pg MCHC (32.0-36.0) g/dL RDW (12.0-15.0) % Plt Count (130-450) 10^3/uL MPV (7.4-11.4) fL Neut # (Auto) (1.5-6.6) 10^3/uL Lymph # (Auto) (1.5-3.5) 10^3/uL Burnet # (Auto) (0.0-1.0) 10^3/uL Eos # (Auto) (0.0-0.7) 10^3/uL Baso # (Auto) (0.0-0.1) 10^3/uL Absolute Nucleated RBC x10^3/uL Nucleated RBC % /100WBC PT (9.9-12.6) secs INR (0.8-1.2) APTT (24.9-33.3) secs Sodium (135-145) mmol/L Potassium (3.5-5.0) mmol/L Chloride (101-111) mmol/L Carbon Dioxide (21-32) mmol/L Anion Gap (6-13) BUN (6-20) mg/dL Creatinine (0.6-1.2) mg/dL Estimated GFR (MDRD) (>89) Glucose (70-100) mg/dL Calcium (8.5-10.3) mg/dL Phosphorus 3.7 (2.5-4.6) mg/dL Magnesium 2.1 (1.7-2.8) mg/dL Total Bilirubin (0.2-1.0) mg/dL AST (10-42) IU/L ALT (10-60) IU/L Alkaline Phosphatase (42-121) IU/L Total Creatine Kinase 48046 H* (22-269) IU/L CK-MB (CK-2) (0.6-6.3) ng/mL Troponin I High Sens 187.5 H* (2.3-19.7) ng/L Total Protein (6.7-8.2) g/dL Albumin (3.2-5.5) g/dL Globulin (2.1-4.2) g/dL Albumin/Globulin Ratio (1.0-2.2) Lipase (22-51) U/L Urine Color Urine Clarity (CLEAR) Urine pH (5.0-7.5) PH Ur Specific Tiona (1.002-1.030) Urine Protein (NEGATIVE) mg/dL Urine Glucose (UA) (NEGATIVE) mg/dL Urine Ketones (NEGATIVE) mg/dL Urine Occult Blood (NEGATIVE) Urine Nitrite (NEGATIVE) Urine Bilirubin (NEGATIVE) Urine Urobilinogen (NORMAL) E.U./dL Ur Leukocyte Esterase (NEGATIVE) Urine RBC (0-5) /HPF Urine WBC (0-3) /HPF Ur Squamous Epith Cells (<= Few) Urine Bacteria (None Seen) /HPF Ur Microscopic Review Urine Culture Comments Nasal Screen MRSA (PCR) (NEGATIVE) 11/10/20 11/09/20 11/09/20 Range/Units 00:44 23:22 21:00 WBC (4.8-10.8) x10^3/uL RBC (4.70-6.10) 10^6/uL Hgb (14.0-18.0) g/dL Hct (42.0-52.0) % MCV (80.0-94.0) fL MCH (27.0-31.0) pg MCHC (32.0-36.0) g/dL RDW (12.0-15.0) % Plt Count (130-450) 10^3/uL MPV (7.4-11.4) fL Neut # (Auto) (1.5-6.6) 10^3/uL Lymph # (Auto) (1.5-3.5) 10^3/uL Burnet # (Auto) (0.0-1.0) 10^3/uL Eos # (Auto) (0.0-0.7) 10^3/uL Baso # (Auto) (0.0-0.1) 10^3/uL Absolute Nucleated RBC x10^3/uL Nucleated RBC % /100WBC PT (9.9-12.6) secs INR (0.8-1.2) APTT 60.9 H (24.9-33.3) secs Sodium (135-145) mmol/L Potassium (3.5-5.0) mmol/L Chloride (101-111) mmol/L Carbon Dioxide (21-32) mmol/L Anion Gap (6-13) BUN (6-20) mg/dL Creatinine (0.6-1.2) mg/dL Estimated GFR (MDRD) (>89) Glucose (70-100) mg/dL Calcium (8.5-10.3) mg/dL Phosphorus (2.5-4.6) mg/dL Magnesium (1.7-2.8) mg/dL Total Bilirubin (0.2-1.0) mg/dL AST (10-42) IU/L ALT (10-60) IU/L Alkaline Phosphatase (42-121) IU/L Total Creatine Kinase (22-269) IU/L CK-MB (CK-2) (0.6-6.3) ng/mL Troponin I High Sens (2.3-19.7) ng/L Total Protein (6.7-8.2) g/dL Albumin (3.2-5.5) g/dL Globulin (2.1-4.2) g/dL Albumin/Globulin Ratio (1.0-2.2) Lipase (22-51) U/L Urine Color YELLOW Urine Clarity CLEAR (CLEAR) Urine pH 6.0 (5.0-7.5) PH Ur Specific Tiona 1.020 (1.002-1.030) Urine Protein NEGATIVE (NEGATIVE) mg/dL Urine Glucose (UA) NEGATIVE (NEGATIVE) mg/dL Urine Ketones TRACE (NEGATIVE) mg/dL Urine Occult Blood MODERATE H (NEGATIVE) Urine Nitrite NEGATIVE (NEGATIVE) Urine Bilirubin NEGATIVE (NEGATIVE) Urine Urobilinogen 0.2 (NORMAL) (NORMAL) E.U./dL Ur Leukocyte Esterase NEGATIVE (NEGATIVE) Urine RBC 0-5 (0-5) /HPF Urine WBC 0-3 (0-3) /HPF Ur Squamous Epith Cells RARE Squamous (<= Few) Urine Bacteria None Seen (None Seen) /HPF Ur Microscopic Review INDICATED Urine Culture Comments NOT INDICATED Nasal Screen MRSA (PCR) NEGATIVE (NEGATIVE) 11/09/20 11/09/20 11/09/20 Range/Units 20:19 20:19 20:19 WBC (4.8-10.8) x10^3/uL RBC (4.70-6.10) 10^6/uL Hgb (14.0-18.0) g/dL Hct (42.0-52.0) % MCV (80.0-94.0) fL MCH (27.0-31.0) pg MCHC (32.0-36.0) g/dL RDW (12.0-15.0) % Plt Count (130-450) 10^3/uL MPV (7.4-11.4) fL Neut # (Auto) (1.5-6.6) 10^3/uL Lymph # (Auto) (1.5-3.5) 10^3/uL Burnet # (Auto) (0.0-1.0) 10^3/uL Eos # (Auto) (0.0-0.7) 10^3/uL Baso # (Auto) (0.0-0.1) 10^3/uL Absolute Nucleated RBC x10^3/uL Nucleated RBC % /100WBC PT (9.9-12.6) secs INR (0.8-1.2) APTT (24.9-33.3) secs Sodium 138 (135-145) mmol/L Potassium 3.0 L (3.5-5.0) mmol/L Chloride 102 (101-111) mmol/L Carbon Dioxide 25 (21-32) mmol/L Anion Gap 11.0 (6-13) BUN 13 (6-20) mg/dL Creatinine 1.1 (0.6-1.2) mg/dL Estimated GFR (MDRD) 84 L (>89) Glucose 111 H (70-100) mg/dL Calcium 8.8 (8.5-10.3) mg/dL Phosphorus (2.5-4.6) mg/dL Magnesium (1.7-2.8) mg/dL Total Bilirubin 1.1 H (0.2-1.0) mg/dL AST 154 H (10-42) IU/L ALT 35 (10-60) IU/L Alkaline Phosphatase 71 (42-121) IU/L Total Creatine Kinase 96930 H* (22-269) IU/L CK-MB (CK-2) 17.0 H (0.6-6.3) ng/mL Troponin I High Sens (2.3-19.7) ng/L Total Protein 7.3 (6.7-8.2) g/dL Albumin 3.7 (3.2-5.5) g/dL Globulin 3.6 (2.1-4.2) g/dL Albumin/Globulin Ratio 1.0 (1.0-2.2) Lipase (22-51) U/L Urine Color Urine Clarity (CLEAR) Urine pH (5.0-7.5) PH Ur Specific Tiona (1.002-1.030) Urine Protein (NEGATIVE) mg/dL Urine Glucose (UA) (NEGATIVE) mg/dL Urine Ketones (NEGATIVE) mg/dL Urine Occult Blood (NEGATIVE) Urine Nitrite (NEGATIVE) Urine Bilirubin (NEGATIVE) Urine Urobilinogen (NORMAL) E.U./dL Ur Leukocyte Esterase (NEGATIVE) Urine RBC (0-5) /HPF Urine WBC (0-3) /HPF Ur Squamous Epith Cells (<= Few) Urine Bacteria (None Seen) /HPF Ur Microscopic Review Urine Culture Comments Nasal Screen MRSA (PCR) (NEGATIVE) 11/09/20 11/09/20 11/09/20 Range/Units 20:19 20:19 16:47 WBC 10.9 H (4.8-10.8) x10^3/uL RBC 3.81 L (4.70-6.10) 10^6/uL Hgb 11.4 L (14.0-18.0) g/dL Hct 34.5 L (42.0-52.0) % MCV 90.6 (80.0-94.0) fL MCH 29.9 (27.0-31.0) pg MCHC 33.0 (32.0-36.0) g/dL RDW 13.7 (12.0-15.0) % Plt Count 108 L (130-450) 10^3/uL MPV 8.8 (7.4-11.4) fL Neut # (Auto) 8.4 H (1.5-6.6) 10^3/uL Lymph # (Auto) 1.6 (1.5-3.5) 10^3/uL Burnet # (Auto) 0.7 (0.0-1.0) 10^3/uL Eos # (Auto) 0.1 (0.0-0.7) 10^3/uL Baso # (Auto) 0.0 (0.0-0.1) 10^3/uL Absolute Nucleated RBC 0.00 x10^3/uL Nucleated RBC % 0.0 /100WBC PT 11.8 (9.9-12.6) secs INR 1.1 (0.8-1.2) APTT (24.9-33.3) secs Sodium 134 L (135-145) mmol/L Potassium 3.1 L (3.5-5.0) mmol/L Chloride 98 L (101-111) mmol/L Carbon Dioxide 26 (21-32) mmol/L Anion Gap 10.0 (6-13) BUN 15 (6-20) mg/dL Creatinine 1.1 (0.6-1.2) mg/dL Estimated GFR (MDRD) 84 L (>89) Glucose 97 (70-100) mg/dL Calcium 9.0 (8.5-10.3) mg/dL Phosphorus 3.6 (2.5-4.6) mg/dL Magnesium 2.1 (1.7-2.8) mg/dL Total Bilirubin 1.3 H (0.2-1.0) mg/dL AST 144 H (10-42) IU/L ALT 37 (10-60) IU/L Alkaline Phosphatase 71 (42-121) IU/L Total Creatine Kinase (22-269) IU/L CK-MB (CK-2) (0.6-6.3) ng/mL Troponin I High Sens (2.3-19.7) ng/L Total Protein 8.0 (6.7-8.2) g/dL Albumin 3.8 (3.2-5.5) g/dL Globulin 4.2 (2.1-4.2) g/dL Albumin/Globulin Ratio 0.9 L (1.0-2.2) Lipase 31 (22-51) U/L Urine Color Urine Clarity (CLEAR) Urine pH (5.0-7.5) PH Ur Specific Tiona (1.002-1.030) Urine Protein (NEGATIVE) mg/dL Urine Glucose (UA) (NEGATIVE) mg/dL Urine Ketones (NEGATIVE) mg/dL Urine Occult Blood (NEGATIVE) Urine Nitrite (NEGATIVE) Urine Bilirubin (NEGATIVE) Urine Urobilinogen (NORMAL) E.U./dL Ur Leukocyte Esterase (NEGATIVE) Urine RBC (0-5) /HPF Urine WBC (0-3) /HPF Ur Squamous Epith Cells (<= Few) Urine Bacteria (None Seen) /HPF Ur Microscopic Review Urine Culture Comments Nasal Screen MRSA (PCR) (NEGATIVE) 11/09/20 11/09/20 Range/Units 16:47 11:11 WBC 11.3 H (4.8-10.8) x10^3/uL RBC 4.00 L (4.70-6.10) 10^6/uL Hgb 12.0 L (14.0-18.0) g/dL Hct 36.0 L (42.0-52.0) % MCV 90.0 (80.0-94.0) fL MCH 30.0 (27.0-31.0) pg MCHC 33.3 (32.0-36.0) g/dL RDW 13.8 (12.0-15.0) % Plt Count 115 L (130-450) 10^3/uL MPV 9.1 (7.4-11.4) fL Neut # (Auto) 8.6 H (1.5-6.6) 10^3/uL Lymph # (Auto) 1.8 (1.5-3.5) 10^3/uL Burnet # (Auto) 0.8 (0.0-1.0) 10^3/uL Eos # (Auto) 0.1 (0.0-0.7) 10^3/uL Baso # (Auto) 0.0 (0.0-0.1) 10^3/uL Absolute Nucleated RBC 0.00 x10^3/uL Nucleated RBC % 0.0 /100WBC PT (9.9-12.6) secs INR (0.8-1.2) APTT (24.9-33.3) secs Sodium (135-145) mmol/L Potassium (3.5-5.0) mmol/L Chloride (101-111) mmol/L Carbon Dioxide (21-32) mmol/L Anion Gap (6-13) BUN (6-20) mg/dL Creatinine (0.6-1.2) mg/dL Estimated GFR (MDRD) (>89) Glucose (70-100) mg/dL Calcium (8.5-10.3) mg/dL Phosphorus (2.5-4.6) mg/dL Magnesium (1.7-2.8) mg/dL Total Bilirubin (0.2-1.0) mg/dL AST (10-42) IU/L ALT (10-60) IU/L Alkaline Phosphatase (42-121) IU/L Total Creatine Kinase (22-269) IU/L CK-MB (CK-2) (0.6-6.3) ng/mL Troponin I High Sens 250.9 H* (2.3-19.7) ng/L Total Protein (6.7-8.2) g/dL Albumin (3.2-5.5) g/dL Globulin (2.1-4.2) g/dL Albumin/Globulin Ratio (1.0-2.2) Lipase (22-51) U/L Urine Color Urine Clarity (CLEAR) Urine pH (5.0-7.5) PH Ur Specific Tiona (1.002-1.030) Urine Protein (NEGATIVE) mg/dL Urine Glucose (UA) (NEGATIVE) mg/dL Urine Ketones (NEGATIVE) mg/dL Urine Occult Blood (NEGATIVE) Urine Nitrite (NEGATIVE) Urine Bilirubin (NEGATIVE) Urine Urobilinogen (NORMAL) E.U./dL Ur Leukocyte Esterase (NEGATIVE) Urine RBC (0-5) /HPF Urine WBC (0-3) /HPF Ur Squamous Epith Cells (<= Few) Urine Bacteria (None Seen) /HPF Ur Microscopic Review Urine Culture Comments Nasal Screen MRSA (PCR) (NEGATIVE) ABX Reporting Has patient been on IV antibiotics over the past 48 hours?: No Assessment/Plan - Problem List (1) Alcohol withdrawal seizure Impression: delirium is mild with CIWA score and he is getting Ativan prn. We will not give seizure meds since the cause is alcohol withdrawal and once he gets thru that, will not need meds. continue thiamine, multivit po. prn ativan w BENITA protocol Social work consult for possible rehab or AA. Qualifiers: Complication of substance-induced condition: with delirium Qualified Code(s): F10.231 - Alcohol dependence with withdrawal delirium; R56.9 - Unspecified convulsions (2) Elevated troponin level Impression: Until we knew this was demand ischemia, he was treated with aspirin, statin, IV heparin drip. Initial troponin was 72, then 131, then 250 and he is 187 at 5 this morning. We think this is just demand ischemia from his seizure. EKG has sinus rhythm, tachycardic, voltage changes of left ventricular hypertrophy, inverted T waves in the inferior leads. Repeat EKG a day later has a slowed heart rate 63. The same nonspecific ST-T wave changes of inverted T waves in the inferior leads. No other changes. (3) Hypokalemia Impression: supplement po and check in am. (4) Elevated WBC count Impression: Without hypoxemia, normal chest x-ray, no fever, without UTI. Abdominal exam negative. At this time we are assuming this is a leukemoid reaction due to his seizure. We will continue watch for fever, signs of infection and treat as needed. Qualifiers: Leukocytosis type: leukemoid reaction Qualified Code(s): D72.823 - Leukemoid reaction (5) Elevated CPK Impression: Due to seizure. Will monitor daily. Supplement with IV fluids for hydration
[2020-11-10] MEDS ORDERED: MULTIVITAMIN 10 ML, FOLIC ACID INJ 1 MG, THIAMINE INJ 100 MG, MAGNESIUM SULFATE 2 GM in... IV SCH ×5 (09:00)
[2020-11-10] MEDS: ASPIRIN EC 325 MG TABLET PO SCH (11:13)
[2020-11-10] MEDS: METOPROLOL TARTRATE 25 MG TABLET PO SCH ×2 (11:13→20:49)
[2020-11-10] MEDS: ENOXAPARIN 40 MG/0.4 ML SYRINGE SUBQ SCH (11:14)
[2020-11-10] MEDS: CHLORHEXIDINE GLUCONATE 15 ML UDC PO SCH ×2 (11:14→20:49)
[2020-11-10] MEDS: NICOTINE 14 MG PATCH TOP SCH (11:14)
[2020-11-10] MEDS: PRENATAL VITAMIN TABLET PO SCH (11:15)
[2020-11-10] MEDS: THIAMINE 100 MG TABLET PO SCH (11:15)
[2020-11-10] MEDS: SODIUM CHLORIDE FLUSH 0.9% 10 ML SYRINGE IVP SCH ×2 (11:16→18:49)
[2020-11-10] MEDS: LORazepam 2 MG/ML VIAL IVP PRN (11:39)
[2020-11-10] MEDS: LACTATED RINGERS 1,000 ML IV SCH ×2 (13:36→21:31)
[2020-11-10] MEDS ORDERED: POTASSIUM CHLORIDE 20 MEQ TABLET PO ONE (14:01)
[2020-11-10] MEDS: ATORVASTATIN 10 MG TABLET PO SCH (20:49)
[2020-11-11] MEDS: LORazepam 2 MG/ML VIAL IVP PRN ×3 (00:51→02:47)
[2020-11-11] MEDS: SODIUM CHLORIDE FLUSH 0.9% 10 ML SYRINGE IVP SCH ×3 (00:52→18:11)
[2020-11-11] MEDS ORDERED: chlordiazePOXIDE 25 MG CAPSULE PO ONE (03:00)
[2020-11-11] MEDS: LACTATED RINGERS 1,000 ML IV SCH ×3 (05:17→21:08)
[2020-11-11] MEDS: chlordiazePOXIDE 25 MG CAPSULE PO SCH ×3 (05:18→21:07)
[2020-11-11 05:19] LABS: BASOPHILS % (AUTO) 0.2 %; EOSINOPHILS # (AUTO) 0.2 10^3/uL (0.0-0.7); EOSINOPHILS % (AUTO) 1.8 %; HCT - HEMATOCRIT 36.8 % (42.0-52.0); HGB - HEMOGLOBIN 12.1 g/dL (14.0-18.0); LYMPHOCYTES # (AUTO) 1.4 10^3/uL (1.5-3.5); MEAN CORPUSCULAR HEMOGLOBIN 30.3 pg (27.0-31.0); MEAN CORPUSCULAR HGB CONC 32.9 g/dL (32.0-36.0); MEAN CORPUSCULAR VOLUME 92.2 fL (80.0-94.0); MEAN PLATELET VOLUME 9.2 fL (7.4-11.4); MONOCYTES # (AUTO) 0.6 10^3/uL (0.0-1.0); MONOCYTES % (AUTO) 6.3 %; NEUTROPHILS # (AUTO) 6.7 10^3/uL (1.5-6.6); NEUTROPHILS % (AUTO) 75.3 %; PLT - PLATELET COUNT 124 10^3/uL (130-450); RED BLOOD COUNT 3.99 10^6/uL (4.70-6.10); RED CELL DISTRIBUTION WIDTH 13.5 % (12.0-15.0); WHITE BLOOD COUNT 8.9 x10^3/uL (4.8-10.8)
[2020-11-11] MEDS: PANTOPRAZOLE 40 MG TABLET PO SCH (06:01)
[2020-11-11] MEDS ORDERED: cloNIDine 0.3 MG PATCH TOP SCH (06:07)
[2020-11-11] MEDS ORDERED: PROPRANOLOL 40 MG TABLET PO SCH ×2 (06:08→07:00)
[2020-11-11 06:24] LABS: CALCIUM 8.7 mg/dL (8.5-10.3); CREATININE 0.9 mg/dL (0.6-1.2); POTASSIUM 3.2 mmol/L (3.5-5.0)
[2020-11-11] MEDS ORDERED: DEXMEDETOMIDINE 400 MCG/100 ML 100 ML IV PRN (06:35)
--- NOTE | 2020-11-11 08:05 | PROVIDER PROGRESS NOTE ---
Subjective - Prog Note Date Prog Note Date: 11/11/20 Prog Note Time: 11:44 - Subjective Subjective: Night increasing agitation, inappropriate with the nurse. Assessed by the buggy loader and Precedex ordered but not started yet. So far benzodiazepines are controlling his behavior, agitation. Current Medications - Current Medications Current Medications: Active Medications Acetaminophen (Acetaminophen 325 Mg Tablet) 650 mg PO Q4HR PRN PRN Reason: Pain 1 to 4 Aspirin (Aspirin Ec 325 Mg Tablet) 325 mg PO DAILY [facility] Last Admin: 11/10/20 11:13 Dose: 325 mg Documented by: Atorvastatin Calcium (Atorvastatin 10 Mg Tablet) 10 mg PO QPM [facility] Last Admin: 11/10/20 20:49 Dose: 10 mg Documented by: Chlordiazepoxide HCl (Chlordiazepoxide 25 Mg Capsule) 50 mg PO TID [facility] Last Admin: 11/11/20 05:18 Dose: 50 mg Documented by: Chlorhexidine Gluconate (Chlorhexidine Gluconate 15 Ml Udc) 15 ml PO BID [facility] Last Admin: 11/10/20 20:49 Dose: 15 ml Documented by: Docusate Sodium (Docusate Sodium 250 Mg Capsule) 250 - 500 mg PO DAILY [facility] Enoxaparin Sodium (Enoxaparin 40 Mg/0.4 Ml Syringe) 40 mg SUBQ DAILY [facility] Last Admin: 11/10/20 11:14 Dose: 40 mg Documented by: Lactated Ringer's (Lr) 1,000 mls @ 125 mls/hr IV .Q8H [facility] Last Admin: 11/11/20 05:17 Dose: 125 mls/hr Documented by: Dexmedetomidine/Sodium Chloride (Precedex Premix) 100 mls @ 3.45 mls/hr IV .Q29H PRN PRN Reason: Agitation Lorazepam (Lorazepam 2 Mg/Ml Vial) 2 mg IVP Q30M PRN; Protocol PRN Reason: CIWA >8 Last Admin: 11/11/20 02:47 Dose: 2 mg Documented by: Metoprolol Tartrate (Metoprolol Tartrate 25 Mg Tablet) 25 mg PO BID [facility] Morphine Sulfate (Morphine 2 Mg/Ml Carpuject) 2 mg IVP Q2HR PRN PRN Reason: Pain 8 to 10 Nicotine (Nicotine 14 Mg Patch) 1 patch TOP DAILY [facility] Last Admin: 11/10/20 11:14 Dose: 1 patch Documented by: Ondansetron HCl (Ondansetron 4 Mg/2 Ml Vial) 4 mg IVP Q6HR PRN PRN Reason: Nausea / Vomiting Pantoprazole Sodium (Pantoprazole 40 Mg Tablet) 40 mg PO QDAC [facility] Last Admin: 11/11/20 06:01 Dose: 40 mg Documented by: Polyethylene Glycol (Polyethylene Glycol 3350 17 Gm Packet) 17 gm PO DAILY [facility] Potassium Chloride (Potassium Chloride 20 Meq Tablet) 20 meq PO Q2H [facility]; Protocol Stop: 11/11/20 11:01 Multivit/Folic Acid/Iron ( Vitamin Tablet) 1 tab PO DAILY [facility] Last Admin: 11/10/20 11:15 Dose: 1 tab Documented by: Senna (Senna 8.6 Mg Tablet) 8.6 - 17.2 mg PO DAILY [facility] Sodium Chloride (Sodium Chloride Flush 0.9% 10 Ml Syringe) 10 ml IVP PRN PRN PRN Reason: NEEDED PER PROVIDER ORDERS Sodium Chloride (Sodium Chloride Flush 0.9% 10 Ml Syringe) 10 ml IVP 0100,0900,1700 [facility] Last Admin: 11/11/20 00:52 Dose: 10 ml Documented by: Thiamine HCl (Thiamine 100 Mg Tablet) 100 mg PO DAILY [facility] Last Admin: 11/10/20 11:15 Dose: 100 mg Documented by: Home Medications Unobtainable [HOME MEDICATIONS UNOBTAINABLE] 11/09/20 Objective - Vital Signs/Intake & Output Reviewed Vital Signs: Yes Vital Signs: Vital Signs Pulse Resp BP Pulse Ox 11/11/20 07:00 70 18 165/93 H 100 11/11/20 06:00 90 17 171/101 H 96 11/11/20 05:00 72 16 161/92 H 98 Intake & Output: Intake & Output 11/08/20 11/09/20 11/10/20 11/11/20 23:59 23:59 23:59 23:59 Intake Total 2420.2 2229.258 970.833 Output Total 750 90 Balance 2420.2 1479.258 880.833 - Objective General Appearance: positive: Other (Asleep, wakes to sternal rub and my voice. Yesterday he was completely alert and lucid. Oriented. He is covered in a sheen of sweat. But no tremulousness, fasciculations.) Eyes Bilateral: positive: PERRL, EOMI ENT: positive: No signs of dehydration Neck: positive: No JVD. negative: Stiff neck Respiratory: positive: No respiratory distress. negative: Wheezes, Rales, Rhonchi Cardiovascular: positive: Regular rate & rhythm (No tachycardia). negative: Systolic murmur, Gallop/S4, Friction rub Abdomen: positive: No organomegaly, Nml bowel sounds, No distention Skin: positive: Warm, Dry Extremities: positive: No pedal edema Neurologic/Psychiatric: positive: CN's nml (2-12), Motor nml, Other (Sedated and opens eyes to voice, mumbles a response then goes back to sleep) - Lab Results Fish Bones: 11/11/20 05:01 11/11/20 05:01 Other Labs: Lab Results x24hrs 11/11/20 11/11/20 11/11/20 Range/Units 06:26 05:01 05:01 WBC 8.9 (4.8-10.8) x10^3/uL RBC 3.99 L (4.70-6.10) 10^6/uL Hgb 12.1 L (14.0-18.0) g/dL Hct 36.8 L (42.0-52.0) % MCV 92.2 (80.0-94.0) fL MCH 30.3 (27.0-31.0) pg MCHC 32.9 (32.0-36.0) g/dL RDW 13.5 (12.0-15.0) % Plt Count 124 L (130-450) 10^3/uL MPV 9.2 (7.4-11.4) fL Neut # (Auto) 6.7 H (1.5-6.6) 10^3/uL Lymph # (Auto) 1.4 L (1.5-3.5) 10^3/uL [place] # (Auto) 0.6 (0.0-1.0) 10^3/uL Eos # (Auto) 0.2 (0.0-0.7) 10^3/uL Baso # (Auto) 0.0 (0.0-0.1) 10^3/uL Absolute Nucleated RBC 0.00 x10^3/uL Nucleated RBC % 0.0 /100WBC Sodium 134 L (135-145) mmol/L Potassium 3.2 L (3.5-5.0) mmol/L Chloride 98 L (101-111) mmol/L Carbon Dioxide 26 (21-32) mmol/L Anion Gap 10.0 (6-13) BUN 11 (6-20) mg/dL Creatinine 0.9 (0.6-1.2) mg/dL Estimated GFR (MDRD) 106 (>89) Glucose 114 H (70-100) mg/dL POC Whole Bld Glucose 115 H (70 - 100) mg/dL Calcium 8.7 (8.5-10.3) mg/dL Total Creatine Kinase 67733 H* (22-269) IU/L 11/10/20 11/10/20 11/09/20 Range/Units 21:52 06:12 22:49 WBC (4.8-10.8) x10^3/uL RBC (4.70-6.10) 10^6/uL Hgb (14.0-18.0) g/dL Hct (42.0-52.0) % MCV (80.0-94.0) fL MCH (27.0-31.0) pg MCHC (32.0-36.0) g/dL RDW (12.0-15.0) % Plt Count (130-450) 10^3/uL MPV (7.4-11.4) fL Neut # (Auto) (1.5-6.6) 10^3/uL Lymph # (Auto) (1.5-3.5) 10^3/uL [place] # (Auto) (0.0-1.0) 10^3/uL Eos # (Auto) (0.0-0.7) 10^3/uL Baso # (Auto) (0.0-0.1) 10^3/uL Absolute Nucleated RBC x10^3/uL Nucleated RBC % /100WBC Sodium (135-145) mmol/L Potassium (3.5-5.0) mmol/L Chloride (101-111) mmol/L Carbon Dioxide (21-32) mmol/L Anion Gap (6-13) BUN (6-20) mg/dL Creatinine (0.6-1.2) mg/dL Estimated GFR (MDRD) (>89) Glucose (70-100) mg/dL POC Whole Bld Glucose 105 H 93 142 H (70 - 100) mg/dL Calcium (8.5-10.3) mg/dL Total Creatine Kinase (22-269) IU/L Assessment/Plan - Problem List (1) Alcohol withdrawal Impression: Withdrawal was initially manifested as a seizure. We are not giving seizure medicine since the cause of alcohol withdrawal and once he gets through alcohol withdrawal he will not need medications. Yesterday his withdrawal appeared mild. Controlled with as needed Ativan. Overnight, he became much more tachycardic, hypertensive, diaphoretic, confused. As such he had Librium given to him. And then Precedex. Heart rate is in the 60s and 70s. Blood pressure 165/93 this morning. 100% saturated on room air. Plan: Try to continue to give meds p.o. but he may need to be switched to IV banana bag again Continue CIWA protocol Social work consult for possible rehab or Alcoholics Anonymous once he is through withdrawal Qualifiers: Complication of substance-induced condition: with delirium Qualified Code(s): F10.231 - Alcohol dependence with withdrawal delirium; R56.9 - Unspe cified convulsions (2) Elevated troponin level Impression: Until we knew this was demand ischemia, he was treated with aspirin, statin, IV heparin drip. Initial troponin was 72, then 131, then 250 and he came down to 187 on 9/14 am. We think this is just demand ischemia from his seizure. EKG has sinus rhythm, tachycardic, voltage changes of left ventricular hypertrophy, inverted T waves in the inferior leads. Repeat EKG a day later has a slowed hea rt rate 63. The same nonspecific ST-T wave changes of inverted T waves in the inferior leads. No other changes. Plan: continue to monitor for signs and symtoms of angina or [place] (3) Hypokalemia Impression: Initiate ICU protocol for electrolytes. (4) Elevated WBC count Impression: Without hypoxemia, normal chest x-ray, no fever, without UTI. Abdominal exam negative. Today he is normal level. At this time we are assuming this is a leukemoid reaction due to his seizure. We will continue watch for fever, signs of infection and treat as needed. Qualifiers: Leukocytosis type: leukemoid reaction Qualified Code(s): D72.823 - Leukemoid reaction (5) Elevated CPK Impression: Due to seizure. Will monitor daily. Supplement with IV fluids for hydration (5) Elevated WBC count Qualifiers: Leukocytosis type: leukemoid reaction Qualified Code(s): D72.823 - Leukemoid reaction
[2020-11-11] MEDS: METOPROLOL TARTRATE 25 MG TABLET PO SCH ×2 (11:29→21:06)
[2020-11-11] MEDS: ENOXAPARIN 40 MG/0.4 ML SYRINGE SUBQ SCH (11:30)
[2020-11-11] MEDS: ASPIRIN EC 325 MG TABLET PO SCH (11:30)
[2020-11-11] MEDS: NICOTINE 14 MG PATCH TOP SCH (11:30)
[2020-11-11] MEDS: THIAMINE 100 MG TABLET PO SCH (11:31)
[2020-11-11] MEDS: POTASSIUM CHLORIDE 20 MEQ TABLET PO SCH ×2 (11:31→14:46)
[2020-11-11] MEDS: PRENATAL VITAMIN TABLET PO SCH (11:32)
[2020-11-11] MEDS: CHLORHEXIDINE GLUCONATE 15 ML UDC PO SCH ×2 (11:32→21:13)
[2020-11-11] MEDS: DOCUSATE SODIUM 250 MG CAPSULE PO SCH (11:41)
[2020-11-11] MEDS: polyethylene glycoL 3350 17 GM PACKET PO SCH (11:41)
[2020-11-11] MEDS: SENNA 8.6 MG TABLET PO SCH (11:42)
[2020-11-11] MEDS ORDERED: POTASSIUM CHLORIDE 20 MEQ TABLET PO SCH (14:00)
[2020-11-11] MEDS: ATORVASTATIN 10 MG TABLET PO SCH (21:06)
[2020-11-12] MEDS: SODIUM CHLORIDE FLUSH 0.9% 10 ML SYRINGE IVP SCH ×3 (00:22→17:38)
[2020-11-12] MEDS ORDERED: LABETALOL 100 MG TABLET PO PRN (01:21)
[2020-11-12] MEDS: LACTATED RINGERS 1,000 ML IV SCH ×3 (04:48→20:50)
[2020-11-12] MEDS: chlordiazePOXIDE 25 MG CAPSULE PO SCH ×3 (05:08→21:46)
[2020-11-12] MEDS: ACETAMINOPHEN 325 MG TABLET PO PRN ×2 (05:09→23:17)
[2020-11-12 06:03] LABS: BASOPHILS % (AUTO) 0.4 %; EOSINOPHILS # (AUTO) 0.1 10^3/uL (0.0-0.7); EOSINOPHILS % (AUTO) 1.8 %; HGB - HEMOGLOBIN 12.5 g/dL (14.0-18.0); LYMPHOCYTES # (AUTO) 1.2 10^3/uL (1.5-3.5); LYMPHOCYTES % (AUTO) 16.5 %; MEAN CORPUSCULAR HEMOGLOBIN 30.1 pg (27.0-31.0); MEAN CORPUSCULAR HGB CONC 32.9 g/dL (32.0-36.0); MEAN CORPUSCULAR VOLUME 91.6 fL (80.0-94.0); MEAN PLATELET VOLUME 9.6 fL (7.4-11.4); MONOCYTES # (AUTO) 0.8 10^3/uL (0.0-1.0); MONOCYTES % (AUTO) 11.1 %; NEUTROPHILS # (AUTO) 4.9 10^3/uL (1.5-6.6); NEUTROPHILS % (AUTO) 69.9 %; PLT - PLATELET COUNT 142 10^3/uL (130-450); RED BLOOD COUNT 4.15 10^6/uL (4.70-6.10); RED CELL DISTRIBUTION WIDTH 13.6 % (12.0-15.0)
[2020-11-12 06:42] LABS: MAGNESIUM 1.6 mg/dL (1.7-2.8); PHOSPHORUS 3.3 mg/dL (2.5-4.6)
[2020-11-12] MEDS ORDERED: MAGNESIUM OXIDE 400 MG TABLET PO ONE (06:50)
[2020-11-12 07:01] LABS: CREATININE 0.9 mg/dL (0.6-1.2); POTASSIUM 3.5 mmol/L (3.5-5.0)
[2020-11-12 07:02] LABS: CALCIUM 9.1 mg/dL (8.5-10.3)
[2020-11-12] MEDS: PANTOPRAZOLE 40 MG TABLET PO SCH (08:47)
[2020-11-12] MEDS: polyethylene glycoL 3350 17 GM PACKET PO SCH (08:47)
[2020-11-12] MEDS: ASPIRIN EC 325 MG TABLET PO SCH (08:55)
[2020-11-12] MEDS: SENNA 8.6 MG TABLET PO SCH (08:55)
[2020-11-12] MEDS: DOCUSATE SODIUM 250 MG CAPSULE PO SCH (08:55)
[2020-11-12] MEDS: METOPROLOL TARTRATE 25 MG TABLET PO SCH ×2 (08:56→20:51)
[2020-11-12] MEDS: PRENATAL VITAMIN TABLET PO SCH (08:57)
[2020-11-12] MEDS: THIAMINE 100 MG TABLET PO SCH (08:57)
[2020-11-12] MEDS: NICOTINE 14 MG PATCH TOP SCH (08:58)
[2020-11-12] MEDS: ENOXAPARIN 40 MG/0.4 ML SYRINGE SUBQ SCH (08:59)
[2020-11-12] MEDS: CHLORHEXIDINE GLUCONATE 15 ML UDC PO SCH ×2 (09:06→20:51)
[2020-11-12] MEDS ORDERED: cloNIDine 0.1 MG PATCH TOP SCH (10:30)
[2020-11-12] MEDS: POTASSIUM CHLORIDE 20 MEQ TABLET PO SCH ×2 (10:40→12:36)
--- NOTE | 2020-11-12 16:00 | PROVIDER PROGRESS NOTE ---
Subjective - Prog Note Date Prog Note Date: 11/12/20 Prog Note Time: 15:58 - Subjective Pt reports feeling: Improved Subjective: He wanted to sign out AMA last night. Disoriented. Was stumbling, could not even get out of bed without help. [facility] was able to convince him to stay on the basis of his inability to walk very well. This morning he is asleep. But awakens easily. Thinks he is in [place] and that he is at the hospital in [place]. Denies chest pain, palpitations shortness of breath. States is a little nauseated. Current Medications - Current Medications Current Medications: Active Medications Acetaminophen (Acetaminophen 325 Mg Tablet) 650 mg PO Q4HR PRN PRN Reason: Pain 1 to 4 Last Admin: 11/12/20 05:09 Dose: 650 mg Documented by: Aspirin (Aspirin Ec 325 Mg Tablet) 325 mg PO DAILY [facility] Last Admin: 11/12/20 08:55 Dose: 325 mg Documented by: Atorvastatin Calcium (Atorvastatin 10 Mg Tablet) 10 mg PO QPM [facility] Last Admin: 11/11/20 21:06 Dose: 10 mg Documented by: Chlordiazepoxide HCl (Chlordiazepoxide 25 Mg Capsule) 50 mg PO TID [facility] Last Admin: 11/12/20 14:26 Dose: 50 mg Documented by: Chlorhexidine Gluconate (Chlorhexidine Gluconate 15 Ml Udc) 15 ml PO BID [facility] Last Admin: 11/12/20 09:06 Dose: Not Given Documented by: Clonidine HCl (Clonidine 0.1 Mg Patch) 1 patch TOP Q7D [facility] Last Admin: 11/12/20 10:40 Dose: 1 patch Documented by: Docusate Sodium (Docusate Sodium 250 Mg Capsule) 250 - 500 mg PO DAILY [facility] Last Admin: 11/12/20 08:55 Dose: 250 mg Documented by: Enoxaparin Sodium (Enoxaparin 40 Mg/0.4 Ml Syringe) 40 mg SUBQ DAILY [facility] Last Admin: 11/12/20 08:59 Dose: 40 mg Documented by: Lactated Ringer's (Lr) 1,000 mls @ 125 mls/hr IV .Q8H [facility] Last Admin: 11/12/20 12:36 Dose: 125 mls/hr Documented by: Labetalol HCl (Labetalol 100 Mg Tablet) 200 mg PO TID PRN PRN Reason: PER PHYSICIAN ORDER Lorazepam (Lorazepam 2 Mg/Ml Vial) 2 mg IVP Q30M PRN; Protocol PRN Reason: CIWA >8 Last Admin: 11/11/20 02:47 Dose: 2 mg Documented by: Metoprolol Tartrate (Metoprolol Tartrate 25 Mg Tablet) 25 mg PO BID [facility] Last Admin: 11/12/20 08:56 Dose: 25 mg Documented by: Morphine Sulfate (Morphine 2 Mg/Ml Carpuject) 2 mg IVP Q2HR PRN PRN Reason: Pain 8 to 10 Nicotine (Nicotine 14 Mg Patch) 1 patch TOP DAILY [facility] Last Admin: 11/12/20 08:58 Dose: 1 patch Documented by: Ondansetron HCl (Ondansetron 4 Mg/2 Ml Vial) 4 mg IVP Q6HR PRN PRN Reason: Nausea / Vomiting Pantoprazole Sodium (Pantoprazole 40 Mg Tablet) 40 mg PO QDAC [facility] Last Admin: 11/12/20 08:47 Dose: 40 mg Documented by: Polyethylene Glycol (Polyethylene Glycol 3350 17 Gm Packet) 17 gm PO DAILY [facility] Last Admin: 11/12/20 08:47 Dose: 17 gm Documented by: Multivit/Folic Acid/Iron ( Vitamin Tablet) 1 tab PO DAILY [facility] Last Admin: 11/12/20 08:57 Dose: 1 tab Documented by: Senna (Senna 8.6 Mg Tablet) 8.6 - 17.2 mg PO DAILY [facility] Last Admin: 11/12/20 08:55 Dose: 8.6 mg Documented by: Sodium Chloride (Sodium Chloride Flush 0.9% 10 Ml Syringe) 10 ml IVP PRN PRN PRN Reason: NEEDED PER PROVIDER ORDERS Sodium Chloride (Sodium Chloride Flush 0.9% 10 Ml Syringe) 10 ml IVP 0100,0900,1700 [facility] Last Admin: 11/12/20 09:07 Dose: 10 ml Documented by: Thiamine HCl (Thiamine 100 Mg Tablet) 100 mg PO DAILY [facility] Last Admin: 11/12/20 08:57 Dose: 100 mg Documented by: Home Medications Unobtainable [HOME MEDICATIONS UNOBTAINABLE] 11/09/20 Objective - Vital Signs/Intake & Output Reviewed Vital Signs: Yes Vital Signs: Vital Signs Temp Pulse Resp BP Pulse Ox 11/12/20 15:46 37 C 11/12/20 15:00 74 19 123/71 97 11/12/20 14:00 65 19 148/79 H 99 11/12/20 13:00 64 18 142/92 H 100 11/12/20 12:00 37.1 C 59 L 12 98/66 100 Intake & Output: Intake & Output 11/09/20 11/10/20 11/11/20 11/12/20 23:59 23:59 23:59 23:59 Intake Total 2420.2 2229.258 3302.083 2480 Output Total 211 206 0738 Balance 2420.2 5880.433 7004.083 1430 - Objective General Appearance: positive: Lethargic (Mouth is dry, having to lick his lips, speech is slurred as we woke him up) Eyes Bilateral: positive: PERRL, EOMI ENT: positive: No signs of dehydration Neck: positive: No JVD. negative: Stiff neck Respiratory: positive: No respiratory distress. negative: Wheezes, Rales, Rhonchi Cardiovascular: positive: Regular rate & rhythm. negative: Gallop/S4, Friction rub Abdomen: positive: Non-tender, No organomegaly, Nml bowel sounds, No distention Skin: positive: Warm, Dry Extremities: positive: Non-tender, No pedal edema Neurologic/Psychiatric: positive: CN's nml (2-12), Disoriented to time. negative: Motor nml (Tremulousness. No focal deficits.) - Lab Results Fish Bones: 11/12/20 04:27 11/12/20 04:27 Other Labs: Lab Results x24hrs 11/12/20 11/12/20 11/12/20 Range/Units 06:12 04:27 04:27 WBC (4.8-10.8) x10^3/uL RBC (4.70-6.10) 10^6/uL Hgb (14.0-18.0) g/dL Hct (42.0-52.0) % MCV (80.0-94.0) fL MCH (27.0-31.0) pg MCHC (32.0-36.0) g/dL RDW (12.0-15.0) % Plt Count (130-450) 10^3/uL MPV (7.4-11.4) fL Neut # (Auto) (1.5-6.6) 10^3/uL Lymph # (Auto) (1.5-3.5) 10^3/uL [place] # (Auto) (0.0-1.0) 10^3/uL Eos # (Auto) (0.0-0.7) 10^3/uL Baso # (Auto) (0.0-0.1) 10^3/uL Absolute Nucleated RBC x10^3/uL Nucleated RBC % /100WBC Sodium 136 (135-145) mmol/L Potassium 3.5 (3.5-5.0) mmol/L Chloride 98 L (101-111) mmol/L Carbon Dioxide 27 (21-32) mmol/L Anion Gap 11.0 (6-13) BUN 8 (6-20) mg/dL Creatinine 0.9 (0.6-1.2) mg/dL Estimated GFR (MDRD) 106 (>89) Glucose 99 (70-100) mg/dL POC Whole Bld Glucose 98 (70 - 100) mg/dL Calcium 9.1 (8.5-10.3) mg/dL Phosphorus 3.3 (2.5-4.6) mg/dL Magnesium 1.6 L (1.7-2.8) mg/dL Total Creatine Kinase 90019 H* (22-269) IU/L 11/12/20 11/12/20 Range/Units 04:27 00:12 WBC 7.0 (4.8-10.8) x10^3/uL RBC 4.15 L (4.70-6.10) 10^6/uL Hgb 12.5 L (14.0-18.0) g/dL Hct 38.0 L (42.0-52.0) % MCV 91.6 (80.0-94.0) fL MCH 30.1 (27.0-31.0) pg MCHC 32.9 (32.0-36.0) g/dL RDW 13.6 (12.0-15.0) % Plt Count 142 (130-450) 10^3/uL MPV 9.6 (7.4-11.4) fL Neut # (Auto) 4.9 (1.5-6.6) 10^3/uL Lymph # (Auto) 1.2 L (1.5-3.5) 10^3/uL [place] # (Auto) 0.8 (0.0-1.0) 10^3/uL Eos # (Auto) 0.1 (0.0-0.7) 10^3/uL Baso # (Auto) 0.0 (0.0-0.1) 10^3/uL Absolute Nucleated RBC 0.00 x10^3/uL Nucleated RBC % 0.0 /100WBC Sodium (135-145) mmol/L Potassium (3.5-5.0) mmol/L Chloride (101-111) mmol/L Carbon Dioxide (21-32) mmol/L Anion Gap (6-13) BUN (6-20) mg/dL Creatinine (0.6-1.2) mg/dL Estimated GFR (MDRD) (>89) Glucose (70-100) mg/dL POC Whole Bld Glucose 103 H (70 - 100) mg/dL Calcium (8.5-10.3) mg/dL Phosphorus (2.5-4.6) mg/dL Magnesium (1.7-2.8) mg/dL Total Creatine Kinase (22-269) IU/L Assessment/Plan - Problem List (1) Alcohol withdrawal Impression: Withdrawal was initially manifested as a seizure. We are not giving seizure medicine since the cause of alcohol withdrawal and once he gets through alcohol withdrawal he will not need medications. On the second night, Overnight, he became much more tachycardic, hypertensive, diaphoretic, confused. As such he had Librium given to him. And then Precedex was added. . Has not been used. He is been treated with benzodiazepines. Pulse is in the 60s and 70s. Blood pressure 125 and as high as 148. Social work is given him his options. He may be seeking a rehab facility when he gets out. Continue CIWA protocol with benzodiazepines Continue maintenance IV fluids with vitamins Qualifiers: Complication of substance-induced condition: with delirium Qualified Code(s): F10.231 - Alcohol dependence with withdrawal delirium; R56.9 - Unspecified convulsions (2) Elevated troponin level Impression: Until we knew this was demand ischemia, he was treated with aspirin, statin, IV heparin drip. Initial troponin was 72, then 131, then 250 and he came down to 187 on 9/14 am. We think this is just demand ischemia from his seizure. EKG has sinus rhythm, tachycardic, voltage changes of left ventricular hypertrophy, inverted T waves in the inferior leads. Repeat EKG a day later has a slowed heart rate 63. The same nonspecific ST-T wave changes of inverted T waves in the inferior leads. No other changes. Plan: continue to monitor for signs and symtoms of angina or [place] (3) Hypokalemia Impression: Initiate ICU protocol for electrolytes. (4) Elevated WBC count Impression: Without hypoxemia, normal chest x-ray, no fever, without UTI. Abdominal exam negative. NOrmal WBC by 11/11 At this time we are assuming this is a leukemoid reaction due to his seizure. We will continue watch for fever, signs of infection and treat as needed. Qualifiers: Leukocytosis type: leukemoid reaction Qualified Code(s): D72.823 - Leukemoid reaction (5) Elevated CPK Impression: Due to seizure. Will monitor daily. Supplement with IV fluids for hydration
[2020-11-12] MEDS: ATORVASTATIN 10 MG TABLET PO SCH (20:52)
[2020-11-13] MEDS: SODIUM CHLORIDE FLUSH 0.9% 10 ML SYRINGE IVP SCH ×3 (01:38→23:08)
[2020-11-13] MEDS: LACTATED RINGERS 1,000 ML IV SCH ×3 (04:33→20:41)
[2020-11-13] MEDS: chlordiazePOXIDE 25 MG CAPSULE PO SCH ×3 (05:39→20:41)
[2020-11-13] MEDS: PANTOPRAZOLE 40 MG TABLET PO SCH (05:39)
[2020-11-13 06:28] LABS: BASOPHILS % (AUTO) 0.4 %; EOSINOPHILS # (AUTO) 0.2 10^3/uL (0.0-0.7); HCT - HEMATOCRIT 35.8 % (42.0-52.0); HGB - HEMOGLOBIN 11.9 g/dL (14.0-18.0); LYMPHOCYTES # (AUTO) 1.4 10^3/uL (1.5-3.5); LYMPHOCYTES % (AUTO) 17.3 %; MEAN CORPUSCULAR HEMOGLOBIN 30.5 pg (27.0-31.0); MEAN CORPUSCULAR HGB CONC 33.2 g/dL (32.0-36.0); MEAN CORPUSCULAR VOLUME 91.8 fL (80.0-94.0); MEAN PLATELET VOLUME 9.1 fL (7.4-11.4); MONOCYTES % (AUTO) 13.1 %; NEUTROPHILS # (AUTO) 5.3 10^3/uL (1.5-6.6); NEUTROPHILS % (AUTO) 66.8 %; PLT - PLATELET COUNT 156 10^3/uL (130-450); RED CELL DISTRIBUTION WIDTH 13.6 % (12.0-15.0); WHITE BLOOD COUNT 7.9 x10^3/uL (4.8-10.8)
[2020-11-13 07:06] LABS: CALCIUM 8.9 mg/dL (8.5-10.3); CREATININE 0.9 mg/dL (0.6-1.2); MAGNESIUM 1.6 mg/dL (1.7-2.8); PHOSPHORUS 3.3 mg/dL (2.5-4.6); POTASSIUM 3.5 mmol/L (3.5-5.0)
[2020-11-13] MEDS ORDERED: MAGNESIUM OXIDE 400 MG TABLET PO ONE (07:40)
[2020-11-13] MEDS: METOPROLOL TARTRATE 25 MG TABLET PO SCH ×2 (09:08→20:42)
[2020-11-13] MEDS: ENOXAPARIN 40 MG/0.4 ML SYRINGE SUBQ SCH (09:09)
--- NOTE | 2020-11-13 09:09 | PROVIDER PROGRESS NOTE ---
Subjective - Prog Note Date Prog Note Date: 11/13/20 Prog Note Time: 09:10 - Subjective Subjective: he wants to stop drinking. speech is slow and deliberate with the effect of the librium but he is oriented to person, place, time and why he's here. denies cp, sob Current Medications - Current Medications Current Medications: Active Medications Acetaminophen (Acetaminophen 325 Mg Tablet) 650 mg PO Q4HR PRN PRN Reason: Pain 1 to 4 Last Admin: 11/12/20 23:17 Dose: 650 mg Documented by: Aspirin (Aspirin Ec 325 Mg Tablet) 325 mg PO DAILY [facility] Last Admin: 11/13/20 09:10 Dose: 325 mg Documented by: Atorvastatin Calcium (Atorvastatin 10 Mg Tablet) 10 mg PO QPM [facility] Last Admin: 11/12/20 20:52 Dose: 10 mg Documented by: Chlordiazepoxide HCl (Chlordiazepoxide 25 Mg Capsule) 50 mg PO TID [facility] Stop: 11/14/20 07:00 Last Admin: 11/13/20 05:39 Dose: 50 mg Documented by: Chlordiazepoxide HCl (Chlordiazepoxide 25 Mg Capsule) 25 mg PO Q6HR [facility] Chlorhexidine Gluconate (Chlorhexidine Gluconate 15 Ml Udc) 15 ml PO BID [facility] Last Admin: 11/12/20 20:51 Dose: 15 ml Documented by: Clonidine HCl (Clonidine 0.1 Mg Patch) 1 patch TOP Q7D [facility] Last Admin: 11/12/20 10:40 Dose: 1 patch Documented by: Docusate Sodium (Docusate Sodium 250 Mg Capsule) 250 - 500 mg PO DAILY [facility] Last Admin: 11/13/20 09:14 Dose: Not Given Documented by: Enoxaparin Sodium (Enoxaparin 40 Mg/0.4 Ml Syringe) 40 mg SUBQ DAILY [facility] Last Admin: 11/13/20 09:09 Dose: 40 mg Documented by: Lactated Ringer's (Lr) 1,000 mls @ 125 mls/hr IV .Q8H [facility] Last Admin: 11/13/20 12:26 Dose: 125 mls/hr Documented by: Labetalol HCl (Labetalol 100 Mg Tablet) 200 mg PO TID PRN PRN Reason: PER PHYSICIAN ORDER Lorazepam (Lorazepam 2 Mg/Ml Vial) 2 mg IVP Q30M PRN; Protocol PRN Reason: CIWA >8 Last Admin: 11/11/20 02:47 Dose: 2 mg Documented by: Metoprolol Tartrate (Metoprolol Tartrate 25 Mg Tablet) 25 mg PO BID [facility] Last Admin: 11/13/20 09:08 Dose: 25 mg Documented by: Morphine Sulfate (Morphine 2 Mg/Ml Carpuject) 2 mg IVP Q2HR PRN PRN Reason: Pain 8 to 10 Nicotine (Nicotine 14 Mg Patch) 1 patch TOP DAILY [facility] Last Admin: 11/13/20 09:11 Dose: 1 patch Documented by: Ondansetron HCl (Ondansetron 4 Mg/2 Ml Vial) 4 mg IVP Q6HR PRN PRN Reason: Nausea / Vomiting Pantoprazole Sodium (Pantoprazole 40 Mg Tablet) 40 mg PO QDAC [facility] Last Admin: 11/13/20 05:39 Dose: 40 mg Documented by: Polyethylene Glycol (Polyethylene Glycol 3350 17 Gm Packet) 17 gm PO DAILY [facility] Last Admin: 11/13/20 09:14 Dose: 17 gm Documented by: Multivit/Folic Acid/Iron ( Vitamin Tablet) 1 tab PO DAILY [facility] Last Admin: 11/13/20 09:11 Dose: 1 tab Documented by: Senna (Senna 8.6 Mg Tablet) 8.6 - 17.2 mg PO DAILY [facility] Last Admin: 11/13/20 09:14 Dose: Not Given Documented by: Sodium Chloride (Sodium Chloride Flush 0.9% 10 Ml Syringe) 10 ml IVP PRN PRN PRN Reason: NEEDED PER PROVIDER ORDERS Sodium Chloride (Sodium Chloride Flush 0.9% 10 Ml Syringe) 10 ml IVP 0100,0900,1700 [facility] Last Admin: 11/13/20 11:49 Dose: Not Given Documented by: Thiamine HCl (Thiamine 100 Mg Tablet) 100 mg PO DAILY [facility] Last Admin: 11/13/20 09:11 Dose: 100 mg Documented by: Home Medications Unobtainable [HOME MEDICATIONS UNOBTAINABLE] 11/09/20 Objective - Vital Signs/Intake & Output Reviewed Vital Signs: Yes Vital Signs: Vital Signs x48h Temp Pulse Resp BP Pulse Ox 11/13/20 07:00 80 29 H 146/71 H 99 11/13/20 06:00 76 19 138/96 H 99 11/13/20 05:00 71 17 154/82 H 94 11/13/20 04:00 37.4 C 74 20 154/85 H 100 11/13/20 03:00 71 20 184/91 H 99 11/13/20 02:00 71 18 132/66 H 98 Intake & Output: Intake & Output 11/10/20 11/11/20 11/12/20 11/13/20 23:59 23:59 23:59 23:59 Intake Total 2229.258 3302.083 3990.833 1000.00 Output Total 797 878 3671 Balance 0597.400 3266.083 2940.833 1000.00 - Objective General Appearance: positive: No acute distress, Other (His speech is slow, slightly slurred with the effects of the benzodiazepines but he is appropriate. No agitation no hallucinations.) Eyes Bilateral: positive: PERRL, EOMI ENT: positive: No signs of dehydration Neck: positive: No JVD. negative: Stiff neck Respiratory: positive: No respiratory distress. negative: Wheezes, Rales, Rhonchi Cardiovascular: positive: Regular rate & rhythm. negative: Tachycardia, Gallop/S4, Friction rub Abdomen: positive: Non-tender, No organomegaly, Nml bowel sounds, No distention Skin: positive: Warm, Dry Extremities: positive: Full ROM, No pedal edema Neurologic/Psychiatric: positive: Oriented x3, CN's nml (2-12), Motor nml (, Tremulousness and tremors were not present), Slurred/abnml speech (From the benzodiazepines) - Lab Results Fish Bones: 11/13/20 05:54 11/13/20 05:54 Other Labs: Lab Results x24hrs 11/13/20 11/13/20 Range/Units 05:54 05:54 WBC 7.9 (4.8-10.8) x10^3/uL RBC 3.90 L (4.70-6.10) 10^6/uL Hgb 11.9 L (14.0-18.0) g/dL Hct 35.8 L (42.0-52.0) % MCV 91.8 (80.0-94.0) fL MCH 30.5 (27.0-31.0) pg MCHC 33.2 (32.0-36.0) g/dL RDW 13.6 (12.0-15.0) % Plt Count 156 (130-450) 10^3/uL MPV 9.1 (7.4-11.4) fL Neut # (Auto) 5.3 (1.5-6.6) 10^3/uL Lymph # (Auto) 1.4 L (1.5-3.5) 10^3/uL [place] # (Auto) 1.0 (0.0-1.0) 10^3/uL Eos # (Auto) 0.2 (0.0-0.7) 10^3/uL Baso # (Auto) 0.0 (0.0-0.1) 10^3/uL Absolute Nucleated RBC 0.00 x10^3/uL Nucleated RBC % 0.0 /100WBC Sodium 136 (135-145) mmol/L Potassium 3.5 (3.5-5.0) mmol/L Chloride 98 L (101-111) mmol/L Carbon Dioxide 25 (21-32) mmol/L Anion Gap 13.0 (6-13) BUN 9 (6-20) mg/dL Creatinine 0.9 (0.6-1.2) mg/dL Estimated GFR (MDRD) 106 (>89) Glucose 125 H (70-100) mg/dL Calcium 8.9 (8.5-10.3) mg/dL Phosphorus 3.3 (2.5-4.6) mg/dL Magnesium 1.6 L (1.7-2.8) mg/dL Total Creatine Kinase 22636 H* (22-269) IU/L Assessment/Plan - Problem List (1) Alcohol withdrawal Impression: Withdrawal was initially manifested as a seizure. We are not giving seizure medicine since the cause of alcohol withdrawal and once he gets through alcohol withdrawal he will not need medications. On the second night, Overnight, he became much more tachycardic, hypertensive, diaphoretic, confused. As such he had Librium given to him. And then Precedex was added. . Has not been used. He is been treated with benzodiazepines with librium 50 qid as well as prn ativan. He has not needed the prn ativan for >12 hours. Systolic 146-180 in the last 12 hours but pulse is stable MOre alert today. use of language is good. lucid. Speaking to his supervisor case loading on the phone. Wants to stop drinking. He tells me withdrawal usuallly lasts a week. He is on oral thiamine and multivit. Eating his breakfast and drinking his OJ. Social work is given him his options. He may be seeking a rehab facility when he gets out. Continue CIWA protocol with benzodiazepines. Today will keep at 50 mg of librium and tomorrow morning go down to 25 mg. transfer to Med Surg status Qualifiers: Complication of substance-induced condition: with delirium Qualified Code(s): F10.231 - Alcohol dependence with withdrawal delirium; R56.9 - Unspecified convulsions (2) Elevated troponin level Impression: Until we knew this was demand ischemia, he was treated with aspirin, statin, IV heparin drip. Initial troponin was 72, then 131, then 250 and he came down to 187 on 9 am. We think this is just demand ischemia from his seizure. EKG has sinus rhythm, tachycardic, voltage changes of left ventricular hypertrophy, inverted T waves in the inferior leads. Repeat EKG a day later has a slowed heart rate 63. The same nonspecific ST-T wave changes of inverted T waves in the inferior leads. No other changes. Plan: continue to monitor for signs and symtoms of angina or [place] (3) Hypokalemia Impression: On ICU protocol for electrolytes. Will continue to monitor once he's on med surg. (4) Elevated WBC count Impression: Without hypoxemia, normal chest x-ray, no fever, without UTI. Abdominal exam negative. Normal WBC by 11/11 At this time we are assuming this is a leukemoid reaction due to his seizure. We will continue watch for fever, signs of infection and treat as needed. Qualifiers: Leukocytosis type: leukemoid reaction Qualified Code(s): D72.823 - Leukemoid reaction (5) Elevated CPK Impression: Due to seizure. Will monitor daily. Supplement with IV fluids for hydration and stop once he is eating and drinking normally. Laboratory Tests 11/09/20 11/10/20 11/11/20 20:19 05:05 05:01 Total Creatine Kinase 89253 H* 85776 H* 52536 H* 11/12/20 11/13/20 04:27 05:54 Total Creatine Kinase 42537 H* 54640 H* CPK on its way down.
[2020-11-13] MEDS: POTASSIUM CHLORIDE 20 MEQ TABLET PO SCH ×2 (09:10→12:26)
[2020-11-13] MEDS: ASPIRIN EC 325 MG TABLET PO SCH (09:10)
[2020-11-13] MEDS: THIAMINE 100 MG TABLET PO SCH (09:11)
[2020-11-13] MEDS: PRENATAL VITAMIN TABLET PO SCH (09:11)
[2020-11-13] MEDS: NICOTINE 14 MG PATCH TOP SCH (09:11)
[2020-11-13] MEDS: polyethylene glycoL 3350 17 GM PACKET PO SCH (09:14)
[2020-11-13] MEDS: DOCUSATE SODIUM 250 MG CAPSULE PO SCH (09:14)
[2020-11-13] MEDS: SENNA 8.6 MG TABLET PO SCH (09:14)
[2020-11-13] MEDS: CHLORHEXIDINE GLUCONATE 15 ML UDC PO SCH ×2 (16:58→20:41)
[2020-11-13] MEDS: ATORVASTATIN 10 MG TABLET PO SCH (20:41)
[2020-11-14] MEDS: SODIUM CHLORIDE FLUSH 0.9% 10 ML SYRINGE IVP SCH ×3 (00:02→17:44)
[2020-11-14] MEDS: LACTATED RINGERS 1,000 ML IV SCH ×2 (04:34→14:09)
[2020-11-14 05:24] LABS: MAGNESIUM 1.6 mg/dL (1.7-2.8); PHOSPHORUS 3.9 mg/dL (2.5-4.6)
[2020-11-14] MEDS: chlordiazePOXIDE 25 MG CAPSULE PO SCH ×3 (05:36→17:44)
[2020-11-14] MEDS: PANTOPRAZOLE 40 MG TABLET PO SCH (05:36)
[2020-11-14] MEDS: polyethylene glycoL 3350 17 GM PACKET PO SCH (08:40)
[2020-11-14] MEDS: ENOXAPARIN 40 MG/0.4 ML SYRINGE SUBQ SCH (08:40)
[2020-11-14] MEDS: SENNA 8.6 MG TABLET PO SCH (08:41)
[2020-11-14] MEDS: ASPIRIN EC 325 MG TABLET PO SCH (08:41)
[2020-11-14] MEDS: NICOTINE 14 MG PATCH TOP SCH (08:41)
[2020-11-14] MEDS: CHLORHEXIDINE GLUCONATE 15 ML UDC PO SCH (08:41)
[2020-11-14] MEDS: DOCUSATE SODIUM 250 MG CAPSULE PO SCH (08:42)
[2020-11-14] MEDS: PRENATAL VITAMIN TABLET PO SCH (08:42)
[2020-11-14] MEDS: THIAMINE 100 MG TABLET PO SCH (08:42)
[2020-11-14] MEDS: METOPROLOL TARTRATE 25 MG TABLET PO SCH (08:42)
--- NOTE | 2020-11-14 15:05 | PROVIDER PROGRESS NOTE ---
Subjective - Prog Note Date Prog Note Date: 11/14/20 Prog Note Time: 15:02 - Subjective Subjective: I have decreased the Librium. He says he is feeling okay with that. No increased tremors, agitation. Denies any hallucinations. Current Medications - Current Medications Current Medications: Active Medications Acetaminophen (Acetaminophen 325 Mg Tablet) 650 mg PO Q4HR PRN PRN Reason: Pain 1 to 4 Last Admin: 11/12/20 23:17 Dose: 650 mg Documented by: Aspirin (Aspirin Ec 325 Mg Tablet) 325 mg PO DAILY [facility] Last Admin: 11/14/20 08:41 Dose: 325 mg Documented by: Atorvastatin Calcium (Atorvastatin 10 Mg Tablet) 10 mg PO QPM [facility] Last Admin: 11/13/20 20:41 Dose: 10 mg Documented by: Chlordiazepoxide HCl (Chlordiazepoxide 25 Mg Capsule) 25 mg PO Q6HR [facility] Last Admin: 11/14/20 11:43 Dose: 25 mg Documented by: Chlorhexidine Gluconate (Chlorhexidine Gluconate 15 Ml Udc) 15 ml PO BID [facility] Last Admin: 11/14/20 08:41 Dose: 15 ml Documented by: Clonidine HCl (Clonidine 0.1 Mg Patch) 1 patch TOP Q7D [facility] Last Admin: 11/12/20 10:40 Dose: 1 patch Documented by: Docusate Sodium (Docusate Sodium 250 Mg Capsule) 250 - 500 mg PO DAILY [facility] Last Admin: 11/14/20 08:42 Dose: 250 mg Documented by: Enoxaparin Sodium (Enoxaparin 40 Mg/0.4 Ml Syringe) 40 mg SUBQ DAILY [facility] Last Admin: 11/14/20 08:40 Dose: 40 mg Documented by: Lactated Ringer's (Lr) 1,000 mls @ 125 mls/hr IV .Q8H [facility] Last Admin: 11/14/20 14:09 Dose: 125 mls/hr Documented by: Labetalol HCl (Labetalol 100 Mg Tablet) 200 mg PO TID PRN PRN Reason: PER PHYSICIAN ORDER Lorazepam (Lorazepam 2 Mg/Ml Vial) 2 mg IVP Q30M PRN; Protocol PRN Reason: CIWA >8 Last Admin: 11/11/20 02:47 Dose: 2 mg Documented by: Metoprolol Tartrate (Metoprolol Tartrate 25 Mg Tablet) 25 mg PO BID [facility] Last Admin: 11/14/20 08:42 Dose: 25 mg Documented by: Morphine Sulfate (Morphine 2 Mg/Ml Carpuject) 2 mg IVP Q2HR PRN PRN Reason: Pain 8 to 10 Nicotine (Nicotine 14 Mg Patch) 1 patch TOP DAILY [facility] Last Admin: 11/14/20 08:41 Dose: 1 patch Documented by: Ondansetron HCl (Ondansetron 4 Mg/2 Ml Vial) 4 mg IVP Q6HR PRN PRN Reason: Nausea / Vomiting Pantoprazole Sodium (Pantoprazole 40 Mg Tablet) 40 mg PO QDAC [facility] Last Admin: 11/14/20 05:36 Dose: 40 mg Documented by: Polyethylene Glycol (Polyethylene Glycol 3350 17 Gm Packet) 17 gm PO DAILY [facility] Last Admin: 11/14/20 08:40 Dose: 17 gm Documented by: Multivit/Folic Acid/Iron ( Vitamin Tablet) 1 tab PO DAILY [facility] Last Admin: 11/14/20 08:42 Dose: 1 tab Documented by: Senna (Senna 8.6 Mg Tablet) 8.6 - 17.2 mg PO DAILY [facility] Last Admin: 11/14/20 08:41 Dose: 8.6 mg Documented by: Sodium Chloride (Sodium Chloride Flush 0.9% 10 Ml Syringe) 10 ml IVP PRN PRN PRN Reason: NEEDED PER PROVIDER ORDERS Sodium Chloride (Sodium Chloride Flush 0.9% 10 Ml Syringe) 10 ml IVP 0100,0900, 1700 [facility] Last Admin: 11/14/20 08:42 Dose: 10 ml Documented by: Thiamine HCl (Thiamine 100 Mg Tablet) 100 mg PO DAILY [facility] Last Admin: 11/14/20 08:42 Dose: 100 mg Documented by: Home Medications Unobtainable [HOME MEDICATIONS UNOBTAINABLE] 11/09/20 Objective - Vital Signs/Intake & Output Reviewed Vital Signs: Yes Vital Signs: Vital Signs x48h Temp Pulse Resp BP Pulse Ox 11/14/20 13:00 36.7 C 60 16 143/81 H 95 11/14/20 08:27 37 C 68 18 156/85 H 98 Intake & Output: Intake & Output 11/11/20 11/12/20 11/13/20 11/14/20 23:59 23:59 23:59 23:59 Intake Total 3302.083 3990.833 3759.167 2345.417 Output Total 440 1050 500 500 Balance 2862.083 2940.833 3259.167 1845.417 - Objective General Appearance: positive: Other (Still very sleepy. But he does wake easily when I walk in the room and call his name.) Eyes Bilateral: positive: PERRL, EOMI ENT: positive: No signs of dehydration Neck: positive: No JVD. negative: Stiff neck Respiratory: positive: No respiratory distress. negative: Wheezes, Rales, Rhonchi Cardiovascular: positive: Regular rate & rhythm. negative: Tachycardia, Gallop/S4, Friction rub Abdomen: positive: Non-tender, No organomegaly, Nml bowel sounds, No distention Skin: positive: Warm, Dry Extremities: positive: Non-tender, Full ROM, No pedal edema Neurologic/Psychiatric: positive: Oriented x3, CN's nml (2-12), Motor nml - Lab Results Fish Bones: 11/13/20 05:54 11/13/20 05:54 Other Labs: Lab Results x24hrs 11/14/20 Range/Units 04:47 Phosphorus 3.9 (2.5-4.6) mg/dL Magnesium 1.6 L (1.7-2.8) mg/dL Assessment/Plan - Problem List (1) Alcohol withdrawal Impression: Withdrawal was initially manifested as a seizure. We are not giving seizure medicine since the cause of alcohol withdrawal and once he gets through alcohol withdrawal he will not need medications. On the second night, Overnight, he became much more tachycardic, hypertensive, diaphoretic, confused. As such he had Librium given to him. And then Precedex was added. . Has not been used. He is been treated with benzodiazepines with librium 50 qid as well as prn ativan. He has not needed the prn ativan since 11/11 @ 2:30 am. He was much more alert by Nov 13. Speech was slow and slightly delayed with the benzodiazepine. But no tremors, no agitation. He knew why he was here and what was going on. Yesterday he was on 50 mg of Librium. Today he is on 25 mg of Librium. Asleep. But wakes very easily when I walk in the room. Speech and movement has improved. He is on oral thiamine and multivit. Stop Librium today after 2 doses. If he is fine by tonight and tomorrow morning he may be able to be discharged. Qualifiers: Complication of substance-induced condition: with delirium Qualified Code(s): F10.231 - Alcohol dependence with withdrawal delirium; R56.9 - Unspecified convulsions (2) Elevated troponin level Impression: Until we knew this was demand ischemia, he was treated with aspirin, statin, IV heparin drip. Initial troponin was 72, then 131, then 250 and he came down to 187 on 914 am. We think this is just demand ischemia from his seizure. EKG has sinus rhythm, tachycardic, voltage changes of left ventricular hypertrophy, inverted T waves in the inferior leads. Repeat EKG a day later has a slowed heart rate 63. The same nonspecific ST-T wave changes of inverted T waves in the inferior leads. No other changes. Plan: continue to monitor for signs and symtoms of angina or [place] (3) Hypokalemia resolved Impression: On ICU protocol for electrolytes. Will continue to monitor once he's on med surg. (4) Elevated WBC count resolved Impression: Without hypoxemia, normal chest x-ray, no fever, without UTI. Abdominal exam negative. Normal WBC by 11/11 At this time we are assuming this is a leukemoid reaction due to his seizure. We will continue watch for fever, signs of infection and treat as needed. Qualifiers: Leukocytosis type: leukemoid reaction Qualified Code(s): D72.823 - Leukemoid reaction (5) Elevated CPK going down over time Impression: Due to seizure. Will monitor daily. Supplement with IV fluids for hydration and stop once he is eating and drinking normally.
[2020-11-14 16:28] VITALS: BP 137/83
--- NOTE | 2020-11-14 17:18 | Discharge Plan ---
Discharge Plan Problem Reviewed?: Yes Disposition: Home, Self Care Condition: Stable Prescriptions: Atorvastatin [Lipitor] 10 mg PO QPM #30 tablet Metoprolol Tartrate [Lopressor] 25 mg PO BID #60 tablet Magnesium Oxide [Magnesium] 400 mg PO DAILY #30 Diet: Regular Activity Restrictions: Activity as Tolerated Shower Restrictions: No Driving Restrictions: No Assistance Devices: Walker Instruction Topics: Withdrawal Alcohol What Expect, ED Seizure Alcohol Withdrawal Health Concerns: You presented to our emergency room with confusion, delirium and you had seizures while in the emergency room. You were very somnolent, sleepy and you really could not give us much information. We reviewed some old clinic records and you are a chronic alcoholic, and your last drink was 48 hours prior to coming to the hospital, so we think you are going through delirium tremens with alcohol withdrawal seizure. Initially your EKG was abnormal and we were also afraid you are having a heart attack. We did talk to pmo analyst on the phone while you were in the emergency room and he felt that the changes on your EKG and the blood work we were seeing were all due to the stress on your heart from having a seizure. You were brought into the hospital with delirium tremens. You did not have any further heart problems or seizure problems. We treated your fast heart rate, high blood pressure, delirium, hallucinations and inappropriate behavior with high dose sedatives to control your withdrawal. You have gradually successfully gotten through withdrawal. You are now ready to be discharged and you will be going to a rehab facility in [place]. Plan of Treatment: 1. Start a blood pressure medicine that will help reduce your risk of heart attack and control your blood pressure at 25 mg tablet twice a day called metoprolol. You should also take an aspirin a day.You should also be taking a cholesterol pill once a day. All of these medications, will reduce your risk of heart attack and stroke. 2. Stop smoking. It really does increase your risk of heart attack and stroke 3. Take a multivitamin once a day as well as thiamine 100 mg a day, this will avoid some of the brain damage that alcohol gives you. 4. You are being discharged to a rehab facility in [place]. A cab will take you there. On the way you will stop at the [facility] to pick up driver a walker. 5. You have asked for a letter for work. They need me to verify that you were in the hospital and you will be off work due to illness. I have provided you with that letter. 6. Please establish yourself with a primary care provider. You need to follow- up with that provider to make sure you keep on getting metoprolol and cholesterol pill. Care Goals: To be able to control your blood pressure, stress, and be alcohol free. Assessment: Patient understands care goals, and is participated actively in preparing these care goals with social work and will follow through No Smoking: If you smoke, Please STOP! Call for help.
--- NOTE | 2020-11-14 17:29 | DISCHARGE SUMMARY ---
"Discharge Summary Admit Date: 11/09/20 Discharge Date: 11/14/20 Discharging Provider: Nyla Kelley MD Primary Care Provider: none Code Status: Attempt Resuscitation Condition at Discharge: Stable Discharge Disposition: 01 Home, Self Care - DIAGNOSES Discharge Diagnoses with Status of Each Condition: 1. Alcohol withdrawal with delirium tremens 2. Alcohol withdrawal seizure 3. Elevated white cell count 4. Elevated troponin level, demand ischemia 5. Hypokalemia and hypomagnesemia 6. Elevated CPK due to seizure 7. Hypertension 8. acute kidney injury 9. History of closed head injury - HPI History of Present Illness: Per Admit H&P: The patient is a 55-year-old alcoholic male who receives no outpatient medical care. He reports history of blacking out and having probable seizure activity in the past, but does not specify his alcohol use or related history. He has history of high blood pressure which is untreated. He presented to the ER overnight on November 08 with altered mental status, and was found with repeat seizure activity during the ER stay. Initially patient was somnolent and not mu ch information could be obtained. Case was discussed with neurology, for details I refer to the ER notes. During the daytime clinic records were obtained and based on that, the patient is a chronic alcoholic, therefore it was felt that the seizure was secondary to alcohol withdrawal. Patient reports his last drink was on Monday night, about 48 hours prior to presentation. Additional problem during the ER stay included abnormal EKG with inverted T waves and elevated troponin with upgoing trend, for which cardiology consult was requested. Patient overall did not complain of shortness of breath or chest pain and clinically/mental status lyon he was steadily improving during the ER stay. Cardiology felt that cardiac abnormality was probable demand ischemia rather than coronary blockage and no invasive evaluation or transfer was recommended. Therefore the daytime hospitalist accepted the patient to be admitted to our hospital. Subsequently, I evaluated the patient at the ER, he was with much improved mentation compared to previous, he was easily arousable and converses appropriately. He offered no complaint. He confirmed his alcohol use history. He reported having history of blackouts in the past related to alcohol use and when he would stop drinking. He did not report history of coronary artery disease. Denied chest pain or shortness of breath. Regarding vital signs, patient was tachycardic and hypertensive. On exam he was noted with a bitten tongue however he did not complain of tongue pain, bleeding, and he did not recall tongue biting or urinary incontinence. At the ER he received IV hydration, vitamin replacement, Ativan and Keppra load. - CONSULTS | PROCEDURES Procedures: 1. Echocardiogram has mild concentric left ventricular hypertrophy with mild global hypokinesis, more severe hypokinesis in the inferior and inferolateral wall. Normal valve structure and function. Normal right ventricular size and function. Right atrial pressure is severely elevated but pulmonary pressure could not be measured. 2. Head CT without acute intracranial pathology. Surgical coil is seen in the left [place] causing significant beam hardening artifacts unchanged from prior study. 3. Cervical spine CT without acute cervical spine fracture or dislocation. Mild degenerative disc disease in the neck. 4. chest x-ray without acute cardiopulmonary pathology. - HOSPITAL COURSE Hospital Course: The patient was placed in MedSurg. Started on CIWA protocol. He was initially alert, cooperative and not too sedated. But then he deteriorated with regards to pressure, agitation, inappropriate behavior and was transferred to the ICU for more aggressive CIWA protocol. High-dose Librium 50 mg 3-4 times a day worked very well for him. He gradually successfully went through withdrawal. On the day of discharge was on 25 mg 3 times daily. He was awake, alert, appropriate. Wanting to go to rehab to get off alcohol. He did have a rise in his troponins. Nonspecific EKG changes. Troponin started at 72, peaked at 250 and 6 were 187 when they started dropping. Cardiology consult over the phone felt that these were demand ischemic changes from seizure. He also had an elevated CPK. He started at 13,497. Peaked at 32,766. The day before discharge she was 18,454 with a normal BUN and creatinine. Work-up included echocardiogram which is noted above under procedures. He was treated with banana bags. Then transition to oral vitamin and thiamine and we would like him to continue that. He did have an elevated white cell count on admission. We did not feel it was infection and more leukemoid reaction and the white cell count returned to normal without antibiotics. He is discharged in stable condition. Temperature 36.7. Pulse 67. Blood pressure 137/83. Respirations 20. 97% on room air. He is currently on aspirin, metoprolol, and Lipitor. Those will be continued in the outpatient setting. He should establish himself with a primary care provider. He is 5 feet 6 inches tall and weighs 69 kg. Neck is supple without carotid bruits. Lungs are clear to auscultation and percussion. PMI is normally placed with a regular rate and rhythm. The abdomen is slightly obese, soft, nontender without ascites or fluid wave. Extremities have no edema and is ambulating in the room having to use a walker for assist. Greater than 30 minutes was spent coordinating discharge - ALLERGIES Allergies/Adverse Reactions: Allergies Allergy/AdvReac Type Severity Reaction Status Date / Time No Known Drug Allergies Allergy Verified 11/08/20 23:43 - MEDICATIONS Home Medications: Ambulatory Orders Medication Instructions Recorded Confirmed Aspirin EC [Ecotrin] 325 mg PO DAILY tablet 11/14/20 Atorvastatin [Lipitor] 10 mg PO QPM #30 tablet 11/14/20 Magnesium Oxide [Magnesium] 400 mg PO DAILY #30 11/14/20 Metoprolol Tartrate [Lopressor] 25 mg PO BID #60 tablet 11/14/20 - LABS Result Diagrams: 11/13/20 05:54 11/13/20 05:54"
[2020-11-14] MEDS ORDERED: MAGNESIUM OXIDE 400 MG TABLET PO SCH (18:00)
== END 2020-11-14 18:17 | disposition home or self-care (01) | DRG 897 ==
LOC: EDUNIT# → ED 23:35 → ICU 11-09 20:04 → MS3 11-13 18:40
PROVIDERS: ADMIT Internal Medicine; ATTEND Specialist
DX: F10.231 Alcohol dependence with withdrawal delirium (principal); G40.89 Other seizures; I24.8 Other forms of acute ischemic heart disease; N17.9 Acute kidney failure, unspecified; D72.823 Leukemoid reaction; I10 Essential (primary) hypertension; E87.6 Hypokalemia; E83.42 Hypomagnesemia; F17.200 Nicotine dependence, unspecified, uncomplicated; S00.81XA Abrasion of other part of head, initial encounter; X58.XXXA Exposure to other specified factors, initial encounter; Z20.822 Contact with and (suspected) exposure to COVID-19
CPT/HCPCS: 0202U; 36415; 70450; 71045; 72125; 80048; 80053; 80306; 80320; 81001; 82550; 82553; 83690; 83735; 84100; 84443; 84484; 85025; 85610; 85730; 87150; 93005; 93306; 96361; 96365; 96366; 96367; 96368; 96375; 99285; A9270; J1650; J2060; J3411; J7040; J7120; 81003; 85520; 87086

== ENCOUNTER 2021-03-27 06:26 | Emergency (ER) | payer MEDICAID ==
[2021-03-27 06:57] VITALS: BP 176/100
[2021-03-27] MEDS ORDERED: NYSTATIN 500000 UNITS/5 ML UDC PO STA (08:00)
--- NOTE | 2021-03-27 08:04 | ED Physician Documentation ---
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 Reports symptoms ongoing x2 days. Has attempted to "kill the infection with alcohol" at home. Reports does not regularly follow with a physician. Denies fever, chills, chest pain, shortness of breath, night sweats, weight loss, Review of Systems Ten Systems: 10 systems reviewed and negative Constitutional: denies: Fever Eyes: denies: Loss of vision Ears: denies: Loss of hearing Nose: denies: Rhinorrhea / runny nose Throat: reports: Oral lesions / sores. denies: Dental pain / toothache, Sore throat, Swollen tonsils, Swallowed foreign body Cardiac: denies: Chest pain / pressure, Palpitations Respiratory: denies: Dyspnea, Cough GI: denies: Abdominal Pain, Abdominal Swelling : denies: Dysuria Skin: denies: Rash Musculoskeletal: denies: Neck pain Neurologic: denies: Generalized weakness PD PAST MEDICAL HISTORY - Past Medical History Past Medical History: Yes Cardiovascular: Hypertension, High cholesterol Respiratory: Sleep apnea Neuro: None, Other Endocrine/Autoimmune: None GI: None : None HEENT: Chronic vision loss Psych: Panic attacks Musculoskeletal: None Derm: None - Past Surgical History Past Surgical History: Yes Neuro: Other - Present Medications Home Medications: Ambulatory Orders Medication Instructions Recorded Confirmed Atorvastatin [Lipitor] 10 mg PO QPM #30 tablet 11/14/20 03/27/21 Magnesium Oxide [Magnesium] 400 mg PO DAILY #30 11/14/20 03/27/21 Metoprolol Tartrate [Lopressor] 25 mg PO BID #60 tablet 11/14/20 03/27/21 - Allergies Allergies/Adverse Reactions: Allergies Allergy/AdvReac Type Severity Reaction Status Date / Time No Known Drug Allergies Allergy Verified 11/08/20 23:43 - Social History Does the pt smoke?: Yes Smoking Status: Current every day smoker Does the pt drink ETOH?: Yes ETOH Use: Liquor Does the pt have substance abuse?: Yes Substance Use and Type: Marijuana - Immunizations Immunizations are current?: No Immunizations: Other immun current PD ED PE NORMAL - Vitals Vital signs reviewed: Yes - General General: Alert and oriented X 3 - Neck Neck: Supple, no meningeal sign, No bony TTP, No JVD, No bruit - Cardiac Cardiac: RRR - Respiratory Respiratory: No respiratory distress - Abdomen Abdomen: Normal bowel sounds PD ED PE EXPANDED - HEENT HEENT: Other (Friable white coating over the tongue and buccal mucosa.) Results - Vitals Vitals: Vital Signs - 24 hr 03/27/21 06:53 Temperature 35.8 C L Heart Rate 96 Respiratory 20 Rate Blood Pressure 176/100 H O2 Saturation 100 Oxygen O2 Source Room air PD MEDICAL DECISION MAKING - ED course Complexity details: d/w patient ED course: Is a 55-year-old male with known history hypertension, EtOH abuse, tobacco dependence presenting to the emergency department with a mass on the right side of his tongue as well as friable white coating over the tongue and buccal mucosa. Patient's presentation is consistent with thrush. Additionally the mass on the side of his tongue is concerning for possible leukoplakia or early neoplastic changes. He denied any night sweats, fever or weight loss however does have 2 obvious risk factors, tobacco dependence and longstanding history of chronic alcoholism. We will begin nystatin swish and swallow is here in the emergency department. I did detailed discussion with the patient about the multiple possible etiologies of his symptoms. I expressed to him the extreme importance of following up with a primary care doctor for further testing in the immediate future. He verbalized understanding of this. Discharged on an ongoing course of nystatin swish and swallows with contact information for follow-up with a local provider.
== END 2021-03-27 08:34 | disposition home or self-care (01) ==
LOC: ED 06:26
DX: B37.0 Candidal stomatitis (principal); K13.70 Unspecified lesions of oral mucosa; F10.10 Alcohol abuse, uncomplicated; I10 Essential (primary) hypertension; F17.200 Nicotine dependence, unspecified, uncomplicated
CPT/HCPCS: 99282; 99283; A9270

== ENCOUNTER 2021-03-29 08:00 | Outpatient (CLI) | payer MEDICAID ==
[2021-03-29 18:17] LABS: HCT - HEMATOCRIT 44.3 % (42.0-52.0); HGB - HEMOGLOBIN 14.5 g/dL (14.0-18.0); MEAN CORPUSCULAR HEMOGLOBIN 30.5 pg (27.0-31.0); MEAN CORPUSCULAR HGB CONC 32.7 g/dL (32.0-36.0); MEAN CORPUSCULAR VOLUME 93.1 fL (80.0-94.0); MEAN PLATELET VOLUME 8.3 fL (7.4-11.4); RED BLOOD COUNT 4.76 10^6/uL (4.70-6.10); RED CELL DISTRIBUTION WIDTH 15.6 % (12.0-15.0); WHITE BLOOD COUNT 7.7 x10^3/uL (4.8-10.8)
[2021-03-29 19:06] LABS: ESTIMATED AVERAGE GLUCOSE 103 mg/dL (70-100); HEMOGLOBIN A1c% 5.2 % (4.27-6.07)
[2021-03-30 13:37] LABS: HIV AG/AB 4TH GEN NON-REACTIVE (NON-REACTIVE)
== END 2021-03-29 23:59 | disposition home or self-care (01) ==
LOC: LAB.N 08:00
PROVIDERS: ATTEND Physician Assistant Medical
DX: B37.0 Candidal stomatitis (principal)
CPT/HCPCS: 36415; 83036; 85027; 87389

== ENCOUNTER 2021-09-11 10:51 | Outpatient (CLI) | payer MEDICAID | END 2021-09-11 10:52 | disposition critical access hospital (66) | LOC: EMS 10:51 | DX: R56.9 Unspecified convulsions (principal) | CPT/HCPCS: A0425; A0427; A0999 ==